=== PATIENT | male | born 1950 | race Caucasian/White ===

== ENCOUNTER 2016-05-18 01:52 | Emergency (ER) | payer OTHER, MEDICARE ==
[~2016-05-18] VITALS: Ht 152.4 cm; Wt 105.2 kg
[~2016-05-18 01:52] MED LIST: ALPRAZOLAM2 MG PO; AMLODIPINE10 MG PO; ASPIRIN CHILDRE81 MG PO; COLACE100 MG PO; DIAZEPAM5 MG PO; DULCOLAX10 MG PR; FERROUS SULFAT325 M1 PO; FLEET ENEMA 131 UNIT PR; FOLIC ACID 1 MG PO; GABAPENTIN300 MG PO; HYDRODIURIL 2525 MG PO; LIDODERM 5% PAT1 PAT EXT; LISINOPRIL20 MG PO; LOPRESSOR50 MG PO; LORAZEPAM1 MG PO; MAG-OX 400400 MG PO; METFORMIN HCL1000 MG PO; METHADONE HYDRO10 MG PO; MILK OF MAGNESI30 ML PO; MIRALAX17 GM PO; OXACILLIN2 G1 IV; OXYCODONE HYDRO10 M1 PO; OXYCODONE HYDRO30 MG PO; OXYCODONE5 M1 PO; OXYCONTIN10 MG PO; OXYCONTIN15 MG PO; PERCOCET 325 MG1 TA2 PO; PERIGUARD TOP; PRILOSEC 20MG C20 MG PO; ROXICODONE5 MG PO; SANTYL250 U/GM TOP; SENNA8.6 M1 PO; Theragran Vitamins PO; ULTRAM(MONOGRAP50 MG PO; VITAMIN B1100 MG PO
--- NOTE | 2016-05-18 02:01 | ED GENERAL ADULT ---
History of Present Illness General Chief Complaint: Upper Extremity Problem Stated Complaint: BIBA LEFT SHOULDER PAIN Source: patient, old records, EMS Exam Limitations: no limitations Vital Signs & Intake/Output Vital Signs & Intake/Output Vital Signs Date Time Temp Pulse Resp B/P Pulse O2 O2 Flow FiO2 Ox Delivery Rate 05/18 0221 98.2 66 18 138/74 95 Room Air Allergies Coded Allergies: codeine (Intermediate, STOMACH CRAMPING 05/18/16) morphine (From MS Contin) (Intermediate, PROFUSE SWEATING 05/18/16) Reconcile Medications Amlodipine Besylate (Amlodipine) 10 MG TABLET 1 TAB PO DAILY HTN (Reported) Aspirin (Children's Aspirin) 81 MG CTB 81 MG PO DAILY Heart Bisacodyl (Dulcolax) 10 MG SUP 1 SUPP UT DAILY NEEDED PRN CONSTIPATION ( Reported) Fleet Enema (Fleet Enema 135 Ml) 19 GRAM-7 GRAM/118 ML ENEMA 1 UNIT UT DAILY NEEDED PRN CONSTIPATION (Reported) Gabapentin 300 MG CAPSULE 1 TAB PO TID PAIN (Reported) Lidocaine HCl (Lidoderm Patch) 5 % PAT 1 PAT EXT DAILY Pain Lorazepam 1 MG TAB 1 MG PO DAILY NEEDED PRN ANXIETY Magnesium Hydroxide (Milk Of Magnesia 30ML) 400 MG/5 ML ORAL.SUSP 30 ML PO Q3D PRN CONSTIPATION (Reported) METFORMIN HCL (Metformin HCl) 1,000 MG TABLET 1 TAB PO BID DIABETES (Reported ) Oxycodone HCl 10 MG TABLET 1-2 TAB PO 4XDP PRN pain ten...[id number] OXYCODONE HCL (Oxycontin) [address] 30 MG PO Q12 Pain OXYCODONE HCL (Roxicodone) 5 MG TAB 10 MG PO Q4P PRN PAIN MODERATE TO SEVERE Tramadol HCl (Ultram) 50 MG TAB 50 MG PO Q6 Pain Triage Nurses Notes Reviewed? yes Onset: Gradual Duration: waxing and waning, waxing and waning for years Injury Environment: home Severity: mild, moderate Modifying Factors: Improves With: rest. Worsens With: movement. Associated Symptoms: left shoulder pain HPI: 66 yo gentleman presents with several years of left shoulder and right lower lumbar pain. He notes no new trauma or injury. He notes that he feels worse with movement, with the possible trigger being when he cleaned his car. He notes that he has been feeling better with oxycodone 30mg in the past, but it has been many months since he last had this medication. He notes, "I feel pain all the time." Past History Travel History Traveled to [place] past 21 day No Medical History Any Pertinent Medical History? see below for history Cardiovascular: hypertension, hyperlipidemia Musculoskeletal: chronic pain History of MRSA: No History of VRE: No History of CDIFF: No Surgical History Surgical History: lumbar surgery Psychosocial History Who do you live with Patient/Self Services at Home Nursing What is your primary language Sierra Leonean Family History Family History, If Any: FATHER Relation not specified for: FH: lung cancer Hx Contributory? No Review of Systems Review of Systems Constitutional: Reports: no symptoms. EENTM: Reports: no symptoms. Respiratory: Reports: no symptoms. Cardiovascular: Reports: no symptoms. GI: Reports: no symptoms. Genitourinary: Reports: no symptoms. Musculoskeletal: Reports: no symptoms. Skin: Reports: no symptoms. Neurological/Psychological: Reports: no symptoms. Hematologic/Endocrine: Reports: no symptoms. Immunologic/Allergic: Reports: no symptoms. All Other Systems: Reviewed and Negative Physical Exam Physical Exam General Appearance: well developed/nourished, mild distress Head: atraumatic, normal appearance Eyes: Bilateral: normal appearance. Ears, Nose, Throat: normal pharynx, normal ENT inspection Neck: normal inspection, supple, full range of motion Respiratory: normal breath sounds, chest non-tender, no respiratory distress, quiet respiration, lungs clear Cardiovascular: regular rate/rhythm Gastrointestinal: normal bowel sounds, soft, non-tender, no organomegaly Back: normal inspection, muscle spasm, no vertebral tenderness Extremities: left shoulder with crepitus, pain with passive ROM. No warmth/sign of infection. No deformity. Neurologic/Psych: no motor/sensory deficits, awake, alert, oriented x 3 Skin: intact, normal color, warm/dry Core Measures ACS in differential dx? No CVA/TIA Diagnosis: No Severe Sepsis Present: No Septic Shock Present: No Progress Differential Diagnoses I considered the following diagnoses in my evaluation of the patient: chronic pain, arthritis vs other. Plan of Care: Current Medications Sig/Ernestina Start time Last Medication Dose Stop Time Status Admin Alprazolam 1 MG ONCE ONE 05/18 214 AC (Xanax) 05/18 215 Initial ED EKG: none Departure Departure Disposition: HOME OR SELF CARE Condition: Stable Clinical Impression Primary Impression: Chronic pain Secondary Impressions: Arthritis Referrals: PRICE DOLAN,DEANNE (PCP/Family) Departure Forms: Customer Survey General Discharge Information Prescriptions: Current Visit Scripts Oxycodone HCl 1-2 TAB PO 4XDP PRN pain #10 TAB ten...[id number] Comments pt with chronic pain, no new injury, pt ambulated in ED without problem, safe for discharge with follow up by PMD. Critical Care Note Critical Care Note Critical Care Time: non-applicable
[2016-05-18] MEDS ORDERED: OXYCODONE HCL10 M2 PO (02:03)
[2016-05-18 02:21] VITALS: BP 138/74
== END 2016-05-18 04:11 ==
LOC: ERH 01:52
DX: G89.29 Other chronic pain (principal); M19.90 Unspecified osteoarthritis, unspecified site; M54.5 Low back pain

== ENCOUNTER 2016-07-12 09:11 | Emergency (ER) | payer OTHER, MEDICARE ==
[~2016-07-12] VITALS: Ht 176.5 cm; Wt 108.0 kg
[~2016-07-12 09:11] MED LIST changes: +OXYCODONE HCL10 M2 PO
[2016-07-12 09:22] VITALS: BP 144/89
--- NOTE | 2016-07-12 09:43 | ED UPPER/LOWER EXTREMITY COMPL ---
History of Present Illness General Chief Complaint: Shoulder Injury Stated Complaint: LEFT SHOULDER PAIN THAT RADIATES DOWN ARM Source: patient Exam Limitations: no limitations Vital Signs & Intake/Output Vital Signs & Intake/Output ED Intake and Output 04 0000 07/12 1200 Intake Total Output Total Balance Patient 238 lb Weight Allergies Coded Allergies: codeine (Intermediate, STOMACH CRAMPING 07/12/16) morphine (From MS Contin) (Intermediate, PROFUSE SWEATING 07/12/16) Reconcile Medications Amlodipine Besylate (Amlodipine) 10 MG TABLET 1 TAB PO DAILY HTN (Reported) Aspirin (Children's Aspirin) 81 MG CTB 81 MG PO DAILY Heart Bisacodyl (Dulcolax) 10 MG SUP 1 SUPP OR DAILY NEEDED PRN CONSTIPATION ( Reported) Fleet Enema (Fleet Enema 135 Ml) 19 GRAM-7 GRAM/118 ML ENEMA 1 UNIT OR DAILY NEEDED PRN CONSTIPATION (Reported) Gabapentin 300 MG CAPSULE 1 TAB PO TID PAIN (Reported) Lidocaine HCl (Lidoderm Patch) 5 % PAT 1 PAT EXT DAILY Pain Lorazepam 1 MG TAB 1 MG PO DAILY NEEDED PRN ANXIETY Magnesium Hydroxide (Milk Of Magnesia 30ML) 400 MG/5 ML ORAL.SUSP 30 ML PO Q3D PRN CONSTIPATION (Reported) METFORMIN HCL (Metformin HCl) 1,000 MG TABLET 1 TAB PO BID DIABETES (Reported ) Oxycodone HCl 10 MG TABLET 1 TAB PO BID PRN PAIN Oxycodone HCl 10 MG TABLET 1-2 TAB PO 4XDP PRN pain ten...[id number] OXYCODONE HCL (Oxycontin) [address] 30 MG PO Q12 Pain OXYCODONE HCL (Roxicodone) 5 MG TAB 10 MG PO Q4P PRN PAIN MODERATE TO SEVERE Tramadol HCl (Ultram) 50 MG TAB 50 MG PO Q6 Pain Triage Note: TRIAGE: PT TO ER C/C L SHOULDER PAIN CHRONIC/CONSTANT X YEARS. TRIED ALEVE WITH NO RELIEF. REFERRED TO PAIN CLINIC AND WAS GIVEN PRESCRIPTION OXYCODONE [address] HOFF 06/08/2016, STATES THEY ONLY LASTED ABOUT A WEEK. LOOKING INTO SURGICAL OPTIONS AT THIS TIME WELL. Triage Nurses Notes Reviewed? yes Onset: Abrupt Duration: day(s): (1) Timing: multiple episodes today Severity: moderate, severe Severity Numbers: 10 Pain/Injury Location: Left: Shoulder. Modifying Factors: Worsens With: movement. Associated Symptoms: GOT WORSE AFTER LIFTING GRANDAUGHTER HPI: 66 year old male presents to the ER for chief complaint of chronic left shoulder pain. History of spinal abscess after shoulder surgery many years ago. He had a fracture at that time. Developed hematologic spread of a septic joint. Patient states that his PCP will not prescribe him pain medications and he is waiting to get into a new orthopedic doctor (dr. jj) that he was referred to out of [place] who does reverse shoulder replaement. He does not want to go back to pain managment because of ford need to go multiple times into the office. He ran out of the medication that he received from the ER a few days ago. Past History Travel History Traveled to [facility] past 21 day No Medical History Any Pertinent Medical History? 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 No Review of Systems Review of Systems Constitutional: Denies: chills, fever. EENTM: Reports: no symptoms. Respiratory: Denies: cough, short of breath. Cardiovascular: Reports: palpitations. Denies: chest pain. Gastrointestinal/Abdominal: Denies: abdominal pain. Genitourinary: Reports: no symptoms. Musculoskeletal: Reports: joint pain, muscle pain, muscle stiffness. Skin: Reports: no symptoms. Neurological/Psychological: Reports: numbness, tingling, weakness. Hematologic/Endocrine: Denies: bruising, bleeding, polyuria, polydipsia. Immunological: Denies: splenectomy. All Other Systems: Reviewed and Negative Physical Exam Physical Exam General Appearance: well developed/nourished, alert, anxious, mild distress Head: atraumatic Eyes: Bilateral: PERRL, EOMI. Ears, Nose, Throat: normal pharynx, normal ENT inspection, hearing grossly normal Neck: normal inspection, supple Cardiovascular/Respiratory: regular rate/rhythm Peripheral Pulses: 2+ radial (R), 2+ radial (L) Back: normal inspection Shoulder Left: pain, limited range of motion Shoulder Right: normal range of motion, normal inspection Elbow Left: normal range of motion, normal inspection Elbow Right: normal range of motion, normal inspection Hand Left: normal inspection, normal range of motion Hand Right: normal inspection, normal range of motion Skin: intact, normal color, warm/dry Lymphatic: no anterior cervical lisa Progress Differential Diagnosis: acute exacerbation of chronic pain Plan of Care: Current Medications Sig/Ernestina Start time Last Medication Dose Stop Time Status Admin Ketorolac 60 MG ONCE ONE 07/12 1015 UNVr Tromethamine 07/12 1016 (Toradol) [facility] REFUSED IM TORADOL. LONG DISCUSSION HAD WITH PATIENT REGARDING FOLLOWING UP ABOUT HIS FUTURE PAIN MANAGMENT. HE STATES HE WILL MAKE APPOINTMENT WITH ORTHO AND WITH PAIN MANAGMEENT. (PARTH DOLAN,CHAI) Departure Departure Time of Disposition: 1015 Disposition: HOME OR SELF CARE Condition: Stable Clinical Impression Primary Impression: Chronic left shoulder pain Referrals: PRICE DOLAN,DEANNE (PCP/Family) Additional Instructions: PLEASE SEE DR JJ OUT OF [place] AND FOLLOW UP WITH PAIN MANAGEMENT AT THE SAME TIME. TAKE THE MEDICATIONS SPARINGLY. AVOID ANY ACTIVITIES THAT WOULD MAKE YOUR SHOULDER PAIN WORSE. Departure Forms: Customer Survey General Discharge Information Prescriptions: Current Visit Scripts Oxycodone HCl 1 TAB PO BID PRN PAIN #10 TAB
[2016-07-12] MEDS ORDERED: OXYCODONE HCL10 M2 PO (10:15)
== END 2016-07-12 10:34 ==
LOC: ERH 09:11
DX: G89.29 Other chronic pain (principal); M25.512 Pain in left shoulder

== ENCOUNTER 2016-08-22 11:00 | Emergency (ER) | payer OTHER, MEDICARE ==
[~2016-08-22] VITALS: Ht 175.3 cm; Wt 108.0 kg
[2016-08-22 11:09] VITALS: BP 143/79
--- NOTE | 2016-08-22 11:12 | ED UPPER/LOWER EXTREMITY COMPL ---
History of Present Illness General Chief Complaint: Shoulder Injury Stated Complaint: LEFT SHOULDER PAIN, NEEDS PAIN MEDS Source: patient, old records Exam Limitations: no limitations Vital Signs & Intake/Output Vital Signs & Intake/Output Vital Signs Date Time Temp Pulse Resp B/P B/P Pulse O2 O2 Flow FiO2 Mean Ox Delivery Rate 08/22 1109 98.0 83 15 143/79 96 Room Air Room Air Allergies Coded Allergies: codeine (Intermediate, STOMACH CRAMPING 08/22/16) morphine (From MS Contin) (Intermediate, PROFUSE SWEATING 08/22/16) Reconcile Medications Amlodipine Besylate (Amlodipine) 10 MG TABLET 1 TAB PO DAILY HTN (Reported) Aspirin (Children's Aspirin) 81 MG CTB 81 MG PO DAILY Heart Bisacodyl (Dulcolax) 10 MG SUP 1 SUPP IA DAILY NEEDED PRN CONSTIPATION ( Reported) Fleet Enema (Fleet Enema 135 Ml) 19 GRAM-7 GRAM/118 ML ENEMA 1 UNIT IA DAILY NEEDED PRN CONSTIPATION (Reported) Gabapentin 300 MG CAPSULE 1 TAB PO TID PAIN (Reported) Lidocaine HCl (Lidoderm Patch) 5 % PAT 1 PAT EXT DAILY Pain Lorazepam 1 MG TAB 1 MG PO DAILY NEEDED PRN ANXIETY Magnesium Hydroxide (Milk Of Magnesia 30ML) 400 MG/5 ML ORAL.SUSP 30 ML PO Q3D PRN CONSTIPATION (Reported) METFORMIN HCL (Metformin HCl) 1,000 MG TABLET 1 TAB PO BID DIABETES (Reported ) Oxycodone HCl 10 MG TABLET 1 TAB PO BID PRN PAIN Oxycodone HCl 10 MG TABLET 1-2 TAB PO 4XDP PRN pain ten...[id number] Oxycodone HCl 10 MG TABLET 1 TAB PO BID PRN BREAKTHROUGH SHOULDER PAIN OXYCODONE HCL (Oxycontin) [address] 30 MG PO Q12 Pain OXYCODONE HCL (Roxicodone) 5 MG TAB 10 MG PO Q4P PRN PAIN MODERATE TO SEVERE Tramadol HCl (Ultram) 50 MG TAB 50 MG PO Q6 Pain Triage Nurses Notes Reviewed? yes Onset: Gradual Duration: week(s): (1), constant Timing: recent history Severity: severe Severity Numbers: 10 Pain/Injury Location: Right: Shoulder. Modifying Factors: Improves With: pain medication, rest. Worsens With: movement. Associated Symptoms: none HPI: 66-year-old male presents to ER complaining of chronic left shoulder pain exacerbation over the past several days. He's been using [id number] medications without improvement. He denies any new injury or trauma. He states that he initially had the shoulder repair in 2013, complicated by a spinal abscess after the surgery. The patient states that his primary care physician will not prescribe him pain medication and he refuses to go to pain management. He claims to have an appointment with his orthopedist this Wednesday. No recent fall or trauma. Pain is worse with ambulation movement he denies any swelling or rashes to her skin no chest pain back pain palpitation shortness of breath. He claims that he is always in pain since the surgery in 2013 every day. no numbness or tingling (CARIE DOBSON) Past History Travel History Traveled to [place] past 21 day No Medical History Any Pertinent Medical History? 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 No (CARIE DOBSON) Review of Systems Review of Systems Constitutional: Reports: see HPI. All Other Systems: Reviewed and Negative Comments Review of systems: See HPI, All other systems negative. Constitutional, no chills no fever, no malaise no weight loss HEENT: no sore throat no congestion, no ear pain Cardiovascular: No chest pain , no palpitation Skin: no rashes, no change in skin Respiratory: No dyspnea no cough no sputum GI: No nausea no vomiting, no diarrhea Muscle skeletal: joint pain, no joint swelling, no back pain, no neck pain, Neurologic: No numbness no headache Psych: No stress Heme/endocrine: No bruising no bleeding Immunology: No lymphadenopathy (CARIE DOBSON) Physical Exam Physical Exam General Appearance: well developed/nourished, alert, awake Comments: Well-developed well-nourished patient in no apparent distress. HEENT: Atraumatic, extraocular motion intact Neck: Supple, FROM Back: FROM Cardiovascular: Regular rate and rhythms no murmurs rubs or gallops, Respiratory: Chest nontender.There were no bony deformities, no asymmetry. No respiratory distress. Patient speaking in full complete sentences. Breath sounds clear to auscultation bilaterally: NO W/R/R Shoulder: Atraumatic/Stable. Limited range of motion secondary to pain no rashes to the skin Elbow: Atraumatic/stable. FROM. No laxity Upper arm/Forearm: Atraumatic. Nontender. No edema, 5 out of 5 cardiovascular disease specialist strength noted to bilateral upper extremities Hand/Wrist: Atraumatic/stable. Skin intact. FROM Pulses: Normal/equal radial pulses bilaterally. Brisk cap refill Lower Extremities: full range of motion Neuro: awake, alert, and oriented to person, place and time. There were no obvious focal neurologic abnormalities. Skin: Warm & dry;No appreciable rash on exposed skin Psych: Mood affect normal, normal memory normal judgment. (CARIE DOBSON) Progress Differential Diagnosis: arterial insufficiency, cellulitis, compartment syndrome , contusion, dislocation, DVT, fracture, gout, sprain, tendon injury Plan of Care: Orders Procedure Date/time Status Durable Medical Equipment 08/[address] it applications developer reviewed. pain has been chronic snice initially surgery he states in 2013. i d/w him that this er cannot and will not continue to manage his chronicpain. pt claims to have an appointment with ortho on this upcoming wednesday (Despite telling nursing appt is wednesday). shoulder sling provided. pt is refusing rx for anti inflammatory. requesting something stronger then oxy 10s , which i refused. info provided for pain managemengt as well (CARIE DOBSON) Departure Departure Time of Disposition: 1122 Disposition: HOME OR SELF CARE Condition: Stable Clinical Impression Primary Impression: Chronic left shoulder pain Referrals: PRICE DOLAN,DEANNE (PCP/Family) BENJI DOLAN,ERIC Chao Additional Instructions: follow up with your orthopedist as well as pain management dr wilson oxycodone for breakthrough pain- this is a narcotic and highly addictive. no driving or drinking alcohol while taking as this will make you drowsy As discussed this Emergency room cannot continue to manage your chronic shoulder pain, and will not continue to refill narcotic pain medications. shoulder sling, rest, ice, ibuprofen 800mg every 8 hours. 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 I have also reviewed all the pertinent lab results and diagnostic results. I agree with the findings and the plan of care as documented in the PA's/COKE STILL CLEANER's documentation. [X] I have reviewed the ED Record and agree with the PA's/COKE STILL CLEANER's documentation. [] Additions or exceptions (if any) to the PAs/COKE STILL CLEANER's note and plan are summarized below: [] (AMRIT DOLAN,KEM Porter)
[2016-08-22] MEDS ORDERED: OXYCODONE HCL10 M2 PO (11:32)
== END 2016-08-22 11:39 ==
LOC: ERH 11:00
DX: G89.29 Other chronic pain (principal); M25.512 Pain in left shoulder
CPT/HCPCS: J1885

== ENCOUNTER 2016-09-06 11:23 | Emergency (ER) | payer OTHER ==
[~2016-09-06] VITALS: Ht 175.3 cm; Wt 102.1 kg
[2016-09-06 11:27] VITALS: BP 143/84
--- NOTE | 2016-09-06 12:45 | RADIOLOGY REPORT ---
EXAMINATION: XR LUMBAR SPINE CLINICAL INFORMATION: Low back pain after fall. History of surgery. COMPARISON: Comparison is made to the x-ray report from 02/09/2014. TECHNIQUE: Single AP view obtained of the lumbosacral spine FINDINGS: Moderate right convex lumbar scoliosis. Multilevel disc narrowing and degenerative changes are seen. This is most notable at L3-L4 with a vacuum phenomenon. Associated facet arthropathy. A lateral view is not obtained to assess for vertebral height or additional malalignment. Sacroiliac joints unremarkable. A compression screw extends into the right femoral head. IMPRESSION: Multilevel degenerative changes seen on this AP view of the lumbar spine with a right convex scoliosis. Consider additional imaging if there remains clinical concern regarding compression deformity or acute abnormality in the lumbar spine.
--- NOTE | 2016-09-06 12:50 | RADIOLOGY REPORT ---
EXAMINATION: XR SHOULDER, LEFT CLINICAL INFORMATION: Left shoulder pain after fall COMPARISON: Left shoulder radiographs 01/31/2014. Selected images from MRI left shoulder 08/29/2015. TECHNIQUE: Three views of the left shoulder. FINDINGS: Left humeral head is deformed and flattened along its articular margin with subchondral sclerosis and marked irregularity. The humeral head is subluxed superiorly. Associated severe degenerative change of the glenohumeral joint with marked joint space narrowing, sclerosis and osteophyte formation. No evidence of acute fracture or dislocation. The acromioclavicular joint is unremarkable. IMPRESSION: Severe deformity and flattening of the left humeral head which is subluxed superiorly. Associated advanced degenerative change in the glenohumeral joint with marked joint space narrowing, sclerosis and osteophyte formation. No acute fracture or dislocation is seen.
[2016-09-06] MEDS ORDERED: IBUPROFEN800 M1 PO (13:11)
[2016-09-06] MEDS ORDERED: PERCOCET 10-321 EACH PO (13:11)
--- NOTE | 2016-09-06 13:12 | ED MVC/FALL/TRAUMA COMPLAINT ---
History of Present Illness General Chief Complaint: Shoulder Injury Stated Complaint: L SHOULDER PAIN/PAIN MANAGEMENT Source: patient, old records Exam Limitations: no limitations Vital Signs & Intake/Output Vital Signs & Intake/Output Vital Signs Date Time Temp Pulse Resp B/P B/P Pulse O2 O2 Flow FiO2 Mean Ox Delivery Rate 09/06 1127 97.5 78 15 143/84 97 Room Air Room Air Allergies Coded Allergies: codeine (Intermediate, STOMACH CRAMPING 09/06/16) morphine (From MS Contin) (Intermediate, PROFUSE SWEATING 09/06/16) Reconcile Medications Amlodipine Besylate (Amlodipine) 10 MG TABLET 1 TAB PO DAILY HTN (Reported) Aspirin (Children's Aspirin) 81 MG CTB 81 MG PO DAILY Heart Bisacodyl (Dulcolax) 10 MG SUP 1 SUPP PA DAILY NEEDED PRN CONSTIPATION ( Reported) Fleet Enema (Fleet Enema 135 Ml) 19 GRAM-7 GRAM/118 ML ENEMA 1 UNIT PA DAILY NEEDED PRN CONSTIPATION (Reported) Gabapentin 300 MG CAPSULE 1 TAB PO TID PAIN (Reported) Ibuprofen 800 MG TABLET 1 TAB PO TID pain Lidocaine HCl (Lidoderm Patch) 5 % PAT 1 PAT EXT DAILY Pain Lorazepam 1 MG TAB 1 MG PO DAILY NEEDED PRN ANXIETY Magnesium Hydroxide (Milk Of Magnesia 30ML) 400 MG/5 ML ORAL.SUSP 30 ML PO Q3D PRN CONSTIPATION (Reported) METFORMIN HCL (Metformin HCl) 1,000 MG TABLET 1 TAB PO BID DIABETES (Reported ) Oxycodone HCl 10 MG TABLET 1 TAB PO BID PRN PAIN Oxycodone HCl 10 MG TABLET 1-2 TAB PO 4XDP PRN pain ten...[id number] Oxycodone HCl 10 MG TABLET 1 TAB PO BID PRN BREAKTHROUGH SHOULDER PAIN OXYCODONE HCL (Oxycontin) [address] 30 MG PO Q12 Pain OXYCODONE HCL (Roxicodone) 5 MG TAB 10 MG PO Q4P PRN PAIN MODERATE TO SEVERE Oxycodone HCl/Acetaminophen (Percocet 10-325 MG Tablet) 10 MG-325 MG TABLET 1 TAB PO 4 TIMES/DAY pain Tramadol HCl (Ultram) 50 MG TAB 50 MG PO Q6 Pain Triage Note: PT TO ED FOR CHRONIC LEFT SHOULDER PAIN. SEEN HERE RECENTLY AND RAN OUT OF PAIN MEDS. Triage Nurses Notes Reviewed? yes Onset: Abrupt (yesterday) Duration: hour(s):, constant, continues in ED, getting worse Timing: recent history Severity: moderate, severe Severity Numbers: 9 Injuries/Fall Location: upper extremity (left shoulder ), back Method of Injury: fall Loss of Consciousness: no loss of consciousness No Modifying Factors: none HPI: 66-year-old male with a history of chronic low back pain and chronic left shoulder pain presents to the emergency department with acute on chronic left shoulder and low back pain. Patient reports his pain worsened yesterday when he fell back against a wall. He denies any head injuries or loss of consciousness. He did not fall to the ground. Pain is located in his lower back and does not radiate and is worse with movement and rated as an 8 out of 10. In the left shoulder is worse with movement does not radiate and is rated as an 8 out of 10. Patient reports that pain is both his left shoulder and lower back is the same type of pain he has been dealing with for years. He is currently trying to get in with pain management and is scheduling a left shoulder replacement. He takes oxycodone 10 mg once daily but ran out of his medication and states his orthopedic doctor is unwilling to refill any more medication until after surgery. He denies any numbness tingling fever chest pain shortness of breath or cough. (HASMUKH HILLIARD PA-C) Past History Travel History Traveled to [place] past 21 day No Medical History Any Pertinent Medical History? 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 Yes (HASMUKH HILLIARD PA-C) Review of Systems Review of Systems Constitutional: Reports: no symptoms. Eyes: Reports: no symptoms. Ears, Nose, Throat, Mouth: Reports: no symptoms. Respiratory: Reports: no symptoms. Cardiovascular: Reports: no symptoms. Gastrointestinal/Abdominal: Reports: no symptoms. Genitourinary: Reports: no symptoms. Musculoskeletal: Reports: see HPI, back pain, joint pain (left shoudler ). Skin: Reports: no symptoms. Neurological/Psychological: Reports: no symptoms. All Other Systems: Reviewed and Negative (BABAK GARCÍA,HASMUKH) Physical Exam Physical Exam General Appearance: well developed/nourished, no apparent distress, alert, awake , mild distress Head: atraumatic, normal appearance Eyes: Bilateral: normal appearance, PERRL, EOMI, normal inspection. Ears, Nose, Throat, Mouth: hearing grossly normal Neck: normal inspection, supple, full range of motion, normal alignment, no midline tenderness Respiratory: normal breath sounds, chest non-tender, no respiratory distress, lungs clear Cardiovascular: regular rate/rhythm Peripheral Pulses: 2+ radial (R), 2+ radial (L) Gastrointestinal: normal bowel sounds, soft, non-tender Back: normal range of motion, vertebral tenderness, decreased range of motion, muscle spasm, surgical scar over the lumbar spine. Extremities: limited range of motion (left shoudler ), pain with movement (left shoudler ), tenderness (left shoudler ) Neurologic/Psych: no motor/sensory deficits, awake, alert, oriented x 3, normal gait, normal mood/affect Skin: intact, normal color, warm/dry Comments: There is pain with palpation of the left shoulder anteriorly and posteriorly. Full range of motion of the left shoulder is intact with pain. There is no swelling no bruising no abrasions. Neurovascular supply to the left upper extremity is intact. Full range of motion of the elbow and wrist joints. Pain with palpation of lumbar spine and paraspinous muscles. Full range of motion of the lumbar spine is intact with pain present. There is a large surgical surgical scar over the lumbar spine. No bruising no swelling no CVA tenderness. Strainght leg raise negative bilaterally Core Measures ACS in differential dx? No Severe Sepsis Present: No Septic Shock Present: No (BABAK GARCÍA,HASMUKH) Progress Differential Diagnosis: C/T/L spine injury, ext injury, OA, rotater cuff tear, cervical radiculopathy, frozen shoudler, septic arthritis, muscle strain, fracture Plan of Care: X-rays of the lumbar spine and left shoulder were ordered due to recent trauma. Patient reports his pain is similar to previous episodes he currently ran out of pain medication. X-rays of lumbar spinal shoulder showed no acute fracture but significant degenerative changes. Patient will be given a refill of oxycodone 10 mg to use every 4-6 hours needed for pain. Patient will follow-up with his orthopedic doctor and pain management this week for further evaluation. He'll return to the emergency department with any concerns. Comments: EXAMINATION: XR LUMBAR SPINE CLINICAL INFORMATION: Low back pain after fall. History of surgery. COMPARISON: Comparison is made to the x-ray report from 02/09/2014. TECHNIQUE: Single AP view obtained of the lumbosacral spine FINDINGS: Moderate right convex lumbar scoliosis. Multilevel disc narrowing and degenerative changes are seen. This is most notable at L3-L4 with a vacuum phenomenon. Associated facet arthropathy. A lateral view is not obtained to assess for vertebral height or additional malalignment. Sacroiliac joints unremarkable. A compression screw extends into the right femoral head. IMPRESSION: Multilevel degenerative changes seen on this AP view of the lumbar spine with a right convex scoliosis. Consider additional imaging if there remains clinical concern regarding compression deformity or acute abnormality in the lumbar spine. EXAMINATION: XR SHOULDER, LEFT CLINICAL INFORMATION: Left shoulder pain after fall COMPARISON: Left shoulder radiographs 01/31/2014. Selected images from MRI left shoulder 08/29/2015. TECHNIQUE: Three views of the left shoulder. FINDINGS: Left humeral head is deformed and flattened along its articular margin with subchondral sclerosis and marked irregularity. The humeral head is subluxed superiorly. Associated severe degenerative change of the glenohumeral joint with marked joint space narrowing, sclerosis and osteophyte formation. No evidence of acute fracture or dislocation. The acromioclavicular joint is unremarkable. IMPRESSION: Severe deformity and flattening of the left humeral head which is subluxed superiorly. Associated advanced degenerative change in the glenohumeral joint with marked joint space narrowing, sclerosis and osteophyte formation. No acute fracture or dislocation is seen. (BABAK GARCÍA,HASMUKH) Departure Departure Disposition: HOME OR SELF CARE Condition: Stable Clinical Impression Primary Impression: Left shoulder pain Secondary Impressions: Low back pain Referrals: PRICE DOLAN,DEANNE (PCP/Family) Additional Instructions: Rest avoid heavy lifting bending or excessive physical activity. Use ibuprofen 800 mg every 8 hours with food as needed for pain. Percocet every 4-6 hours as needed for severe breakthrough pain. This may cause drowsiness do not drive while taking. They can follow-up appointment with her orthopedic doctor this week. There is emergency department with any concerns. Please go over all results of today's visit with your primary care doctor. Contact your primary care doctor to let them know you were here in the emergency room. There may be nonspecific findings which may not be related to your visit today here in the emergency room but may require further evaluation and chronic monitoring by your primary care doctor. If you had a laceration today the chance of foreign body always remains. You should follow-up with your primary care doctor for recheck in 3-5 days for a wound check. If you had an x-ray done there is a chance that a fracture could have been missed on initial read and you should follow-up with your primary care doctor for repeat x-rays if symptoms persist. If your blood pressure was elevated here in the emergency room please have rechecked by her primary care doctor within the next 48 hours by your primary care doctor. If you were prescribed a narcotic here in the emergency room or any type of controlled substances you're not allowed to drive while taking this medication or operate any type of heavy machinery. Narcotics can make you feel lightheaded dizziness nausea and can cause constipation. You may need to car pick up driver a stool softener. Thank you for choosing [facility] emergency room. Please return to the emergency room immediately if you have any other concerns worsening of symptoms. Departure Forms: Customer Survey General Discharge Information Prescriptions: Current Visit Scripts Oxycodone HCl/Acetaminophen (Percocet 10-325 MG Tablet) 1 TAB PO 4 TIMES/DAY #10 TAB Ibuprofen 1 TAB PO TID #30 TAB (HASMUKH HILLIARD PA-C) PA/CVT RN Co-Sign Statement Statement: ED Attending supervision documentation- x I saw and evaluated the patient. I have also reviewed all the pertinent lab results and diagnostic results. I agree with the findings and the plan of care as documented in the PA's/CVT RN's documentation. [] I have reviewed the ED Record and agree with the PA's/CVT RN's documentation. [] Additions or exceptions (if any) to the PAs/CVT RN's note and plan are summarized below: [] (VALDEMAR DOLAN,ROSLYN)
== END 2016-09-06 13:15 ==
LOC: ERH 11:23
DX: M25.512 Pain in left shoulder (principal); M54.5 Low back pain
CPT/HCPCS: 72020; 73030-LT

== ENCOUNTER 2016-09-23 03:26 | Emergency (ER) | payer OTHER ==
[~2016-09-23] VITALS: Ht 175.3 cm; Wt 102.1 kg
[~2016-09-23 03:26] MED LIST changes: +IBUPROFEN800 M1 PO; +PERCOCET 10-321 EACH PO
[2016-09-23 03:31] VITALS: BP 118/61
--- NOTE | 2016-09-23 03:44 | ED UPPER/LOWER EXTREMITY COMPL ---
History of Present Illness General Chief Complaint: Upper Extremity Problem Stated Complaint: BIBA L SHOULDER, BACK PAIN Source: patient, old records, EMS Exam Limitations: no limitations Vital Signs & Intake/Output Vital Signs & Intake/Output Vital Signs Date Time Temp Pulse Resp B/P B/P Pulse O2 O2 Flow FiO2 Mean Ox Delivery Rate 09/23 0331 96.5 73 18 118/61 95 Room Air Allergies Coded Allergies: codeine (Intermediate, STOMACH CRAMPING 09/23/16) morphine (From MS Contin) (Intermediate, PROFUSE SWEATING 09/23/16) Reconcile Medications Amlodipine Besylate (Amlodipine) 10 MG TABLET 1 TAB PO DAILY HTN (Reported) Aspirin (Children's Aspirin) 81 MG CTB 81 MG PO DAILY Heart Bisacodyl (Dulcolax) 10 MG SUP 1 SUPP GA DAILY NEEDED PRN CONSTIPATION ( Reported) Fleet Enema (Fleet Enema 135 Ml) 19 GRAM-7 GRAM/118 ML ENEMA 1 UNIT GA DAILY NEEDED PRN CONSTIPATION (Reported) Gabapentin 300 MG CAPSULE 1 TAB PO TID PAIN (Reported) Ibuprofen 800 MG TABLET 1 TAB PO TID pain Lidocaine HCl (Lidoderm Patch) 5 % PAT 1 PAT EXT DAILY Pain Lorazepam 1 MG TAB 1 MG PO DAILY NEEDED PRN ANXIETY Magnesium Hydroxide (Milk Of Magnesia 30ML) 400 MG/5 ML ORAL.SUSP 30 ML PO Q3D PRN CONSTIPATION (Reported) METFORMIN HCL (Metformin HCl) 1,000 MG TABLET 1 TAB PO BID DIABETES (Reported ) Oxycodone HCl 10 MG TABLET 1 TAB PO BID PRN PAIN Oxycodone HCl 10 MG TABLET 1-2 TAB PO 4XDP PRN pain ten...[id number] Oxycodone HCl 10 MG TABLET 1 TAB PO BID PRN BREAKTHROUGH SHOULDER PAIN Oxycodone HCl 5 MG CAPSULE 1 CAP PO Q6P PRN PAIN OXYCODONE HCL (Oxycontin) [address] 30 MG PO Q12 Pain OXYCODONE HCL (Roxicodone) 5 MG TAB 10 MG PO Q4P PRN PAIN MODERATE TO SEVERE Oxycodone HCl/Acetaminophen (Percocet 10-325 MG Tablet) 10 MG-325 MG TABLET 1 TAB PO 4 TIMES/DAY pain Tramadol HCl (Ultram) 50 MG TAB 50 MG PO Q6 Pain Triage Note: TRIAGE: PATIENT TO ER W/ C/O CHRONIC BACK PAIN AND CHRONIC L SHOULDER PAIN "BURSITIS," EMS STATES "SAID HE ROLLED OVER IN BED AND IT HURT," PER PATIENT "THAT DIDN'T HAPPEN, IT'S JUST MY BURSITIS." PATIENT STATES: "I COME HERE EVERY 2 WEEKS BECAUSE I CAN ONLY TAKE MY PAIN FOR SO LONG." Triage Nurses Notes Reviewed? yes HPI: Patient brought in by EMS for left shoulder pain. Patient states he has chronic shoulder pain and is due to have surgery in 3 weeks. Patient states that his primary care physician will not give him pain medications. Patient states that his orthopedist will not give him pain medication until after the surgery. Patient has been unable to see pain management. Patient states that he tries to come here very infrequently however when the pain becomes so bad he needs to come in for a prescription. The pain is 10 out of 10 and is constant. The pain increased with movement. There is no radiation of the pain. The pain is aching and throbbing in nature. Past History Travel History Traveled to [place] past 21 day No Medical History Any Pertinent Medical History? 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 No Review of Systems Review of Systems Constitutional: Reports: no symptoms. Respiratory: Reports: no symptoms. Cardiovascular: Reports: no symptoms. Gastrointestinal/Abdominal: Reports: no symptoms. Musculoskeletal: Reports: see HPI, joint pain. Neurological/Psychological: Reports: no symptoms. Immunological: Reports: no symptoms. Physical Exam Physical Exam General Appearance: well developed/nourished, alert, awake, anxious, mild distress Eyes: Bilateral: PERRL, EOMI. Neck: normal inspection, supple, full range of motion Cardiovascular/Respiratory: normal breath sounds, normal peripheral pulses, regular rate/rhythm, no respiratory distress Shoulder Left: pain, soft tissue tenderness Elbow Left: normal range of motion, normal inspection Neurologic/Tendon: normal sensation, normal motor functions, normal tendon functions Progress Differential Diagnosis: contusion, dislocation, fracture, sprain Plan of Care: Current Medications Sig/Ernestina Start time Last Medication Dose Stop Time Status Admin Oxycodone HCl 5 MG ONCE ONE 09/23 414 UNVr (Roxicodone) 09/24 415 Departure Departure Disposition: HOME OR SELF CARE Condition: Stable Clinical Impression Primary Impression: Left shoulder pain Qualifiers: Chronicity: chronic Qualified Codes: M25.512 - Pain in left shoulder; G89.29 - Other chronic pain Referrals: DEANNE THRASHER MD (PCP/Family) Additional Instructions: FOLLOW UP WITH YOUR ORTHOPEDIST RETURN FOR ANY CONCERNS Departure Forms: Customer Survey General Discharge Information Prescriptions: Current Visit Scripts Oxycodone HCl 1 CAP PO Q6P PRN PAIN #10 CAP
[2016-09-23] MEDS ORDERED: OXYCODONE HCL5 M2 PO (04:04)
== END 2016-09-23 04:17 ==
LOC: ERH 03:26
DX: M25.512 Pain in left shoulder (principal)

== ENCOUNTER 2017-04-23 14:06 | Inpatient (IN) | payer OTHER ==
[~2017-04-23] VITALS: Ht 175.3 cm; Wt 108.9 kg
[~2017-04-23 14:06] MED LIST changes: +ALPRAZOLAM1 M2 PO; +AMLODIPINE BESY10 M1 PO; -AMLODIPINE10 MG PO; +ASPIRIN EC325 M2 PO; +ASPIRIN EC81 M1 PO; +DAILY MULTIPLE1 EACH PO; +FLUTICASONE PRO16 GM NASB; +GABAPENTIN300 M2 PO; -GABAPENTIN300 MG PO; +IBUPROFEN600 M1 PO; +LISINOPRIL20 M1 PO; +METFORMIN HCL500 M3 PO; +MORPHINE SULFAT15 M4 PO; +OXYCODONE HCL5 M1 PO; +OXYCODONE HCL5 M2 PO; +PERCOCET 5-3251 EACH PO; +TIZANIDINE HCL2 M1 PO; +UNISOM25 M1 PO
--- NOTE | 2017-04-23 14:35 | ED DYSPNEA/ASTHMA COMPLAINT ---
History of Present Illness General Chief Complaint: Dyspnea (COPD, CHF, Other) Stated Complaint: SHORTNESS OF BREATH X 2 TO 3 MONTHS Source: patient, EMS Exam Limitations: no limitations Vital Signs & Intake/Output Vital Signs & Intake/Output Vital Signs Date Time Temp Pulse Resp B/P B/P Pulse O2 O2 Flow FiO2 Mean Ox Delivery Rate 04/239 91 97 04/23 2112 97 BIPAP 40% 04/23 2022 90 96 04/23 97 BIPAP 40% 04/23 1934 96.8 94 24 151/90 95 Nasal 3.0L Cannula 04/23 1725 94 24 148/86 96 Aerosol 8L Mask 04/23 1630 94 Nasal 4.0L Cannula 04/23 1441 93 Nasal 3.0L Cannula 04/23 1436 98.0 96 20 125/67 88 Room Air Allergies Coded Allergies: codeine (Intermediate, STOMACH CRAMPING 09/23/16) morphine (From MS Contin) (Intermediate, PROFUSE SWEATING 09/23/16) Reconcile Medications Alprazolam 1 MG TABLET 1 TAB PO TID PRN ANXIETY (Reported) Amlodipine Besylate 10 MG TABLET 1 TAB PO DAILY HTN (Reported) Aspirin (Ecotrin*) 81 MG TABLET.DR 1 TAB PO DAILY HEART/BLOOD (Reported) Doxylamine Succinate (Unisom) (Unknown Strength) TABLET (Unknown Dose) PO QPM SLEEP (Reported) Fluticasone Propionate 50 MCG/ACTUATION SPRAY.SUSP 2 SPRAY NASB DAILY ALLERGIES (Reported) Gabapentin 300 MG CAPSULE 1 CAP PO TID PAIN (Reported) Ibuprofen 600 MG TABLET 1 TAB PO Q6PRN PRN pain with food Lisinopril 20 MG TABLET 1 TAB PO DAILY HEART (Reported) Metformin HCl 500 MG TABLET 1 TAB PO DAILY DIABETES (Reported) Multivitamin (Daily Multiple Vitamin) 1 EACH TABLET 1 TAB PO DAILY VITAMIN SUPPORT (Reported) Oxycodone HCl 10 MG TABLET 1 TAB PO TIDPRN PRN PAIN (Reported) Triage Note: RECEIVED 67 YO MALE BIBA WITH REPORT OF SHORTNESS OF BREATH X 2 TO 3 MONTHS, WORSE ON EXERTION. NO C/O C.P. PT ALSO REPORTS NOT EATING NORMALLY AND NOT SLEEPING WELL. O2 SATS 87% ON ROOM AIR. PT GIVEN COMBI MED NEB TX, O2 SATS INCREASED TO 95% Triage Nurses Notes Reviewed? yes Onset: Gradual Duration: week(s):, getting worse Timing: recent history Severity: severe HPI: 67YO MALE with hx of asthma presents to ED complaining of dyspnea x weeks, worsening today. Patient reports his neighbors called 911 because he was having difficulty breathing today. Patient also reports cough productive of green/ yellow sputum intermittently for the past several weeks. Patient states that current symptoms are severe, he reports no history of severe asthma exacerbation in the past. Patient with O2 sat of 87% on RA when EMS arrived, he was treated with DuoNeb medication and saturation increased to 95%. Patient denies recent fevers, chills, abdominal pain, chest pain, syncope, diarrhea, constipation. (Amirah Goodson) Past History Travel History Traveled to [place] past 21 day No Medical History Any Pertinent Medical History? 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 No (Amirah Goodson) Review of Systems Review of Systems Constitutional: Reports: no symptoms. EENTM: Reports: no symptoms. Respiratory: Reports: see HPI. Cardiovascular: Reports: no symptoms. GI: Reports: no symptoms. Genitourinary: Reports: no symptoms. Musculoskeletal: Reports: no symptoms. Skin: Reports: no symptoms. Neurological/Psychological: Reports: no symptoms. Hematologic/Endocrine: Reports: no symptoms. Immunologic/Allergic: Reports: no symptoms. All Other Systems: Reviewed and Negative (Amirah Goodson) Physical Exam Physical Exam General Appearance: well developed/nourished, obese, drowsy Head: atraumatic, normal appearance Eyes: Bilateral: normal appearance. Ears, Nose, Throat: hearing grossly normal Neck: normal inspection, supple, full range of motion Respiratory: diffuse expirotory wheezes through out all lung dsouza Cardiovascular: regular rate/rhythm Peripheral Pulses: 2+ radial (R), 2+ radial (L) Gastrointestinal: normal bowel sounds, soft, non-tender, no organomegaly Extremities: normal inspection, normal range of motion Neurologic/Psych: awake, alert, oriented x 3, drowsy Skin: intact, normal color, warm/dry Core Measures ACS in differential dx? Yes CVA/TIA Diagnosis No Sepsis Present: No Sepsis Focused Exam Completed? No (Yudelka FIGUEROA,Amirah Mercer) Progress Differential Diagnosis: asthma, AMI, bronchitis, costochondritis, CHF, COPD, pericarditis, pulmonary embolism, pneumonia, pneumothorax, unstable angina, BENZO TOXICITY Plan of Care: Orders Procedure Date/time Status Nothing by Mouth 04/24 B Active Saline Lock 04/23 2206 Active Misc Message 04/23 2206 Active ED Holding Orders 04/23 2206 Active Admit to inpatient 04/23 2206 Active Vital Signs 04/23 2206 Active Code Status 04/23 2206 Active Patient Data 04/23 2128 Active RAPID VIRAL INFLUENZA A 04/23 1911 Complete BIPAP 04/23 1908 Complete ARTERIAL BLOOD GAS (GEN) 04/23 1707 Complete Add-on Test (ER Only) 04/23 1604 Active URINE DRUG SCREEN FOR ER ONLY 04/23 1604 Complete URINALYSIS 04/23 1604 Complete ETHANOL 04/23 1557 Complete TROPONIN LEVEL 04/23 1436 Complete COMPREHENSIVE METABOLIC PANEL 04/23 1436 Complete CBC WITHOUT DIFFERENTIAL 04/23 1436 Complete EKG 04/23 1417 Active Laboratory Tests 04/23/17 2145: pH 7.22 *L, pCO2 65 *H, pO2 96, HCO3 26, ABG O2 Sat (Measured) 96.0, Carboxyhemoglobin 0.3 L, O2 Concentration % 40, Respiration Rate 16, O2 Delivery Method BIPAP, Vent Mode ST, Expiratory Pressure 6, Inspiratory Pressure 18, Phlebotomy Draw Site LEFT BRACHIAL 04/23/17 1846: pH 7.21 *L, pCO2 59 H, pO2 77 L, HCO3 23, ABG O2 Sat (Measured) 92.0 L, Carboxyhemoglobin 0.5 L, O2 Concentration % 4L, O2 Delivery Method NC, Phlebotomy Draw Site LEFT BRACHIAL 04/23/17 1710: Urine Opiates Screen 1691.00, Methadone Screen 64, Barbiturate Screen < 60, Ur Phencyclidine Scrn < 6.00, Amphetamines Screen < 100, U Benzodiazepines Scrn > 800 H, Urine Cocaine Screen < 50, Urine Cannabis Screen < 5.00, Urinalysis MOD H, Urine Color YEL, Urine Clarity HAZY H, Urine pH 6.0, Ur Specific [place]on >= 1.030, Urine Protein 100 H, Urine Ketones NEG, Urine Nitrite NEG, Urine Bilirubin NEG, Urine Urobilinogen 0.2, Ur Leukocyte Esterase NEG, Ur Microscopic SEDIMENT EXAMINED, Urine RBC 1-3, Urine WBC RARE, Ur Epithelial Cells FEW, Urine Bacteria RARE H, Hyaline Casts 5-10 H, Granular Casts 1-3 H, Urine Mucus MOD H, Urine Hemoglobin MOD H, Urine Glucose NEG 04/23/17 1557: Anion Gap 14, Estimated GFR > 60, BUN/Creatinine Ratio 12.5, Glucose 140 H, Calcium 9.3, Total Bilirubin 0.2, AST 66 H, ALT 55, Alkaline Phosphatase 94, Troponin I < 0.01, Total Protein 8.1, Albumin 4.2, Globulin 3.9, Albumin/ Globulin Ratio 1.1, CBC w Diff NO MAN DIFF REQ, RBC 5.06, MCV 82.8, MCH 25.7 L, RDW 22.7 H, MPV 8.5, Gran % 39.5 L, Lymphocytes % 34.0, Monocytes % 19.3 H, Eosinophils % 6.6 H, Basophils % 0.6, Absolute Granulocytes 2.4, Absolute Lymphocytes 2.1, Absolute Monocytes 1.2 H, Absolute Eosinophils 0.4, Absolute Basophils 0, PUBS MCHC 31.0 L, Serum Alcohol < 10.0 Microbiology 04/23 1934 NASOPHARYN: Influenza Virus A & B Rapid Smear - COMP Repeat lung exam following continuous albuterol nebulizer with persistent wheezing. Patient hypoxic at 88% on room air while at rest, requiring supplemental oxygen while here in the emergency department. The patient does not use supplemental oxygen while at home. Screen shows elevated benzodiazepines and opiates for which the patient is prescribed. ABG also with abnormality, hypercarbic respiratory failure, likely secondary to benzodiazepine toxicity. Given patient's ABG BiPap initiated, repeat ABG will be done in one hour. Dr. Piedra present to see and evaluate patient. He agrees with this plan. Dr. Piedra recommends telemetry admission and inpatient stress level and need for persistent monitoring. The patient was discussed with Dr. Card regarding telemetry admission. Diagnostic Imaging: Viewed by Me: Radiology Read. Discussed w/RAD: Radiology Read. CXR Impression: PATIENT: STEPHANY CUMMINS JR PRESENT AGE: 67 PATIENT ACCOUNT NO: [id number] : 52 LOCATION: [facility] ORDERING PHYSICIAN: Amirah FIGUEROA SERVICE DATE: 04/23/17-7758 EXAM TYPE: RAD - XRY-CHEST XRAY, TWO VIEWS EXAMINATION: XR CHEST CLINICAL INFORMATION: Dyspnea and hypoxia. Assess for pneumonia, CHF or effusion. COMPARISON: CT scan of the chest 03/31/2017 and x-ray 02/07/2014. TECHNIQUE: Frontal and lateral views of the chest were obtained. FINDINGS: The lungs are both poorly expanded, similar compared to the prior study. Linear opacity at the right midzone is consistent with atelectasis. There is no definite focal consolidation. The cardiac silhouette is nonenlarged. There is equivocal mild prominence of the central pulmonary vasculature, which is difficult to assess due to bronchovascular crowding. There are no pleural effusions. The left shoulder hemiarthroplasty changes are redemonstrated. There are no acute osseous findings. IMPRESSION: 1. Poorly expanded lung dsouza bilaterally with bronchovascular crowding. There is atelectasis at the right midzone. 2. There are no definite acute cardiopulmonary findings. DICTATED BY: Reza Mahoney MD DATE/TIME DICTATED:04/23/171526 SCREEN STRETCHER:IGOR DATE/TIME TRANSCRIBED:04/23/171526 CONFIDENTIAL, DO NOT COPY WITHOUT APPROPRIATE AUTHORIZATION. <Electronically signed in Other Vendor System> SIGNED BY: Reza Mahoney MD 04/23/17 1534 Initial ED EKG: sinus rhythm @92bpm, nonspecific ST changes Prior EKG: changed (03/23/14 subtle t wave change) (Yudelka FIGUEROA,Amirah Mercer) Departure Departure Disposition: STILL A PATIENT Condition: Stable Clinical Impression Primary Impression: Hypercapnic respiratory failure Secondary Impressions: Asthma exacerbation, Benzodiazepine toxicity Referrals: Ursula Garner MD (PCP/Family) Departure Forms: Customer Survey General Discharge Information Admission Note Spoke With: Fay Card MD Documentation of Exam: Documentation of any treatments & extenuating circumstances including Concerns Regarding Discharge (functional status, medication knowledge or non-compliance, living conditions, etc.) that warrant an admission rather than observation: [ Acute hypercarbic respiratory failure, asthma exacerbation, benzodiazepine toxicity, requiring supplemental oxygen, IV steroids, possible pulmonology consult, BiPAP, respiratory therapy, persistent on a touring given drowsy status ] (Yudelka FIGUEROA,Amirah Mercer) Departure Comments I have seen and evaluated the patient and I agree with the PAs evaluation. I reevaluated him multiple times. He has an elevated benzodiazepine level. Hypercarbic respiratory failure. He was placed on BiPAP. He was admitted to the telemetry unit, upon my recommendation for continuous pulse oximetry, continuing BiPAP, consider pulmonary consultation. (César Piedra DO) Critical Care Note Critical Care Note Critical Care Time: non-applicable (Yudelka FIGUEROA,Amirah Mercer)
--- NOTE | 2017-04-23 15:34 | RADIOLOGY REPORT ---
EXAMINATION: XR CHEST CLINICAL INFORMATION: Dyspnea and hypoxia. Assess for pneumonia, CHF or effusion. COMPARISON: CT scan of the chest 03/31/2017 and x-ray 02/07/2014. TECHNIQUE: Frontal and lateral views of the chest were obtained. FINDINGS: The lungs are both poorly expanded, similar compared to the prior study. Linear opacity at the right midzone is consistent with atelectasis. There is no definite focal consolidation. The cardiac silhouette is nonenlarged. There is equivocal mild prominence of the central pulmonary vasculature, which is difficult to assess due to bronchovascular crowding. There are no pleural effusions. The left shoulder hemiarthroplasty changes are redemonstrated. There are no acute osseous findings. IMPRESSION: 1. Poorly expanded lung dsouza bilaterally with bronchovascular crowding. There is atelectasis at the right midzone. 2. There are no definite acute cardiopulmonary findings.
[2017-04-23 16:08] LABS: ABSOLUTE BASOPHIL COUNT 0 /CUMM (0.0-0.2); ABSOLUTE EOSINOPHIL COUNT 0.4 /CUMM (0.0-0.7); ABSOLUTE GRANULOCYTE CT 2.4 /CUMM (1.4-6.5); ABSOLUTE LYMPH COUNT 2.1 /CUMM (1.2-3.4); ABSOLUTE MONOCYTE COUNT 1.2 /CUMM (0.10-0.60); BASOPHIL % 0.6 % (0.0-2.0); EOSINOPHIL % 6.6 % (0-5); GRANULOCYTE % 39.5 % (42.2-75.2); HEMATOCRIT 41.9 % (42-52); MEAN CORPUSCULAR HGB 25.7 PG (27.0-31.0); MEAN CORPUSCULAR VOLUME 82.8 FL (80.0-94.0); MEAN PLATELET VOLUME 8.5 FL (7.4-10.4); PLATELET COUNT 239 /CUMM (130-400); RBC DISTRIBUTION WIDTH 22.7 % (11.5-14.5); RED BLOOD CELL CT 5.06 /CUMM (4.70-6.10)
[2017-04-23] MEDS ORDERED: OXYCODONE HCL10 M2 PO (17:23)
--- NOTE | 2017-04-23 21:42 | History & Physical ---
Sesar Durand 04/23/17 2141: General Information and HPI History of Present Illness: Mr. Pollock is a 67 yo m with a PMH significant for NIDDM, Hepatitis C, Asthma, BCC on scalp, HTN epidural and paraspinal abscess s/p decompression, lumbar laminectomy, MSSA bacteremia s/p L shoulder arthroscopic debridement, synovectomy, who presents to the ED with worsening SOB for 1 day. Patient poor historian. He reports that he has been SOB with exertion for a couple of months but has been progressively worsening. As per patient today his friends advised him to go to ED because he "looked horrible". He also has a chronic nonproductive cough that he reports persisted after an episode of PNA treated with Azithromycin. He also reports persistent lateral and posterior chest pain after fall in March with subsequent rib fractures. He denies IBANEZ, fever, chills, palpitations, nausea, vomiting, metadone use, urinary or bowel changes. Allergies/Medications Allergies: Coded Allergies: codeine (Intermediate, STOMACH CRAMPING 09/23/16) morphine (From MS Contin) (Intermediate, PROFUSE SWEATING 09/23/16) Home Med list Alprazolam 1 MG TABLET 1 TAB PO TID PRN ANXIETY (Reported) Amlodipine Besylate 10 MG TABLET 1 TAB PO DAILY HTN (Reported) Aspirin (Ecotrin*) 81 MG TABLET.DR 1 TAB PO DAILY HEART/BLOOD (Reported) Doxylamine Succinate (Unisom) (Unknown Strength) TABLET (Unknown Dose) PO QPM SLEEP (Reported) Fluticasone Propionate 50 MCG/ACTUATION SPRAY.SUSP 2 SPRAY NASB DAILY ALLERGIES (Reported) Gabapentin 300 MG CAPSULE 1 CAP PO TID PAIN (Reported) Ibuprofen 600 MG TABLET 1 TAB PO Q6PRN PRN pain with food Lisinopril 20 MG TABLET 1 TAB PO DAILY HEART (Reported) Metformin HCl 500 MG TABLET 1 TAB PO DAILY DIABETES (Reported) Multivitamin (Daily Multiple Vitamin) 1 EACH TABLET 1 TAB PO DAILY VITAMIN SUPPORT (Reported) Oxycodone HCl 10 MG TABLET 1 TAB PO TIDPRN PRN PAIN (Reported) Past History Travel History Traveled to [place] past 21 day No Medical History Neurological: NONE EENT: NONE Cardiovascular: hypertension Respiratory: NONE Gastrointestinal: NONE Hepatic: NONE Renal: NONE Musculoskeletal: chronic pain SEPTIC SHOULDER INFECTION SEPTIC SPINE Psychiatric: OPIOD ABUSE (HISTORY) Endocrine: diabetes Blood Disorders: NONE Cancer(s): NONE 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 Exam & Diagnostic Data Last 24 Hrs of Vital Signs/I&O Vital Signs Date Time Temp Pulse Resp B/P B/P Pulse O2 O2 Flow FiO2 Mean Ox Delivery Rate 04/23 2219 96.6 80 21 129/66 96 BIPAP 30% 04/23 2199 89 95 04/23 2148 91 97 04/23 2112 97 BIPAP 40% 04/23 2022 90 96 04/23 97 BIPAP 40% 04/23 193 96.8 94 24 151/90 95 Nasal 3.0L Cannula 04/23 1725 94 24 148/86 96 Aerosol 8L Mask 04/23 1630 94 Nasal 4.0L Cannula 04/23 1441 93 Nasal 3.0L Cannula 04/23 1436 98.0 96 20 125/67 88 Room Air Intake & Output 04/23 1600 04/23 0800 04/23 0000 Intake Total Output Total Balance Patient 240 lb Weight Weight Reported by Patient Measurement Method Physical Exam General Appearance Alert, Oriented X3, Cooperative, Mild Distress Skin BCC lesion on R-side of head HEENT Atraumatic, PERRLA, EOMI Neck Supple, No JVD, No thryomegaly Cardiovascular Regular Rate Lungs BL wheezing, Low breath sounds Abdomen Normal Bowel Sounds, Soft, No Tenderness, Large abdominal girth Neurological Normal Speech Extremities No Edema, RLE protrusion, R hip surgical scar Last 24 Hrs of Labs/Arnie: Laboratory Tests 04/23/17 2145: pH 7.22 *L, pCO2 65 *H, pO2 96, HCO3 26, ABG O2 Sat (Measured) 96.0, Carboxyhemoglobin 0.3 L, O2 Concentration % 40, Respiration Rate 16, O2 Delivery Method BIPAP, Vent Mode ST, Expiratory Pressure 6, Inspiratory Pressure 18, Phlebotomy Draw Site LEFT BRACHIAL 04/23/17 1846: pH 7.21 *L, pCO2 59 H, pO2 77 L, HCO3 23, ABG O2 Sat (Measured) 92.0 L, Carboxyhemoglobin 0.5 L, O2 Concentration % 4L, O2 Delivery Method NC, Phlebotomy Draw Site LEFT BRACHIAL 04/23/17 1710: Urine Opiates Screen 1691.00, Methadone Screen 64, Barbiturate Screen < 60, Ur Phencyclidine Scrn < 6.00, Amphetamines Screen < 100, U Benzodiazepines Scrn > 800 H, Urine Cocaine Screen < 50, Urine Cannabis Screen < 5.00, Urinalysis MOD H, Urine Color YEL, Urine Clarity HAZY H, Urine pH 6.0, Ur Specific [place] >= 1.030, Urine Protein 100 H, Urine Ketones NEG, Urine Nitrite NEG, Urine Bilirubin NEG, Urine Urobilinogen 0.2, Ur Leukocyte Esterase NEG, Ur Microscopic SEDIMENT EXAMINED, Urine RBC 1-3, Urine WBC RARE, Ur Epithelial Cells FEW, Urine Bacteria RARE H, Hyaline Casts 5-10 H, Granular Casts 1-3 H, Urine Mucus MOD H, Urine Hemoglobin MOD H, Urine Glucose NEG 04/23/17 1557: Anion Gap 14, Estimated GFR > 60, BUN/Creatinine Ratio 12.5, Glucose 140 H, Calcium 9.3, Total Bilirubin 0.2, AST 66 H, ALT 55, Alkaline Phosphatase 94, Troponin I < 0.01, Total Protein 8.1, Albumin 4.2, Globulin 3.9, Albumin/ Globulin Ratio 1.1, CBC w Diff NO MAN DIFF REQ, RBC 5.06, MCV 82.8, MCH 25.7 L, RDW 22.7 H, MPV 8.5, Gran % 39.5 L, Lymphocytes % 34.0, Monocytes % 19.3 H, Eosinophils % 6.6 H, Basophils % 0.6, Absolute Granulocytes 2.4, Absolute Lymphocytes 2.1, Absolute Monocytes 1.2 H, Absolute Eosinophils 0.4, Absolute Basophils 0, PUBS MCHC 31.0 L, Serum Alcohol < 10.0 Microbiology 04/23 2216 LOWER RESP: Respiratory Culture - ORD 04/23 2216 LOWER RESP: Gram Stain - ORD 04/23 1934 NASOPHARYN: Influenza Virus A & B Rapid Smear - COMP Diagnostic Data EKG Results NSR Diffused flat t waves HR: 92 QTc: 416 CXR Results 04/23/17-1436 IMPRESSION: 1. Poorly expanded lung dsouza bilaterally with bronchovascular crowding. There is atelectasis at the right midzone. 2. There are no definite acute cardiopulmonary findings. Other Results 04/23/17-2334 CT CHEST WO IV CONTRAST IMPRESSION: Bronchial wall thickening with scattered bronchial filling defects could be associated with small airways process. Aspiration is possible. Linear basilar opacities are similar to prior and favors atelectasis. No dense consolidation. Healing posterior left 10th rib fracture Assessment/Plan Assessment: Mr. Pollock is a 67 yo m with a PMH significant for NIDDM, Hepatitis C, Asthma, BCC on scalp, HTN epidural and paraspinal abscess s/p decompression, lumbar laminectomy, MSSA bacteremia s/p L shoulder arthroscopic debridement, synovectomy, who presents to the ED with worsening SOB for 1 day admitted to telemetry for Acute hypoxic hypercapnic respiratory failure. Acute hypoxic hypercapnic respiratory failure most likely multifactorial 2/2 Benzodiazepine and Opiate intoxication, Asthma vs COPD exacerbation, undiagnosed OHA/ADE, shallow breaths due to pain ABG on admission 7.21/59/77 ON 4LNC>>7.22/65/96 on BiPAP. On admission patient was noted to be disoriented and lethargic. CXR demonstrated R midlobe atelectasis * Admit to telemetry for close monitoring * Vitals q shift * Neurocheck q4h * Continuous BiPAP, TRC/nebs PRN * Repeat ABG in 4h * Serial trop/ECG to r/o ACS * Follow up BNP, CPK level * IV Methylprednisolone BID * IV Azithromycin * Pulmonology consult in a.m. * Avoid sedative medications * Continue home meds except Gabapentin and Alprazolam * CT chest to r/o acute pathology History of chronic pain, IDDM * Accuchecks and Novolog SS * Oxycodone 5mg q8 Diet: Diabetic DVT ppx: sc Heparin As Ranked By This Provider Problem List: 1. Chronic pain 2. Hypercapnic respiratory failure 3. Benzodiazepine toxicity Core Measures/Misc (12/20) Acute Coronary Syndrome ACS Diagnosis: No Congestive Heart Failure Congestive Heart Failure Diagnosis No Cerebrovascular Accident CVA/TIA Diagnosis: No VTE (View Protocol) VTE Risk Factors Obesity No Mechanical VTE Prophylaxis d/t N/A MechProphylax Ordered No VTE Pharm Prophylaxis d/t NA PharmProphylax ordered Sepsis (View protocol) Sepsis Present: No Phuong Francis 04/23/17 2337: Resident Review Statement Resident Statement: examined this patient, discussed with advisory intern, agreed with advisory intern, discussed with family, reviewed images, amended to note Other Findings: 67 year old man with pmh of multiple bone fractures due to trauma and accidents, DM,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 According to the patient he had an episode of URI about couple of months ago which was treated with Z-Henry but his shortness of breath and coughing did not go of a adult and increased gradually. He has severe shortness of breath on exertion and today according to him his friends call ambulance because he was so short of breath. Patient reports that he quit smoking a couple of years and he was a heavy smoker before that, denies alcohol intake, but does report taking Xanax and oxycodone every day for anxiety and pain. At the moment patient is on BiPAP and denies any chest pain, nausea, vomiting, headache, abdominal pain but he does have generalized pain in the body shortness of breath. Patient denies any fever or chills but had dry coughing and occasional wheezing a couple of months. Vital signs on arrival are notable for hypoxia which was improved with supplemental oxygen and BiPAP. Physical exam and it and oriented 3 Scattered wheezing bilaterally the upper lungs Heart rate regular with normal S1 and S2 Abdomen distended but nontender Multiple scars of the surgeries in the extremities but no apparent edema WBC 6.4, hemoglobin 13.5, monocytes 19.3, and was initially 6.6, toxicology was positive for benzodiazepines more than 800 and opioids 1691, chemistry was notable for glucose 140 and AST 66 Chest x-ray has poor quality but previous x-ray of the ribs showed fracture of the left 11 10 rib Troponin 0.01 EKG showed normal sinus rhythm, rate 92, QTC 446, wide spread flattening of the T Initial ABG showed pH 7.21, PCO2 59, PO2 77 subsequent ABG after 1 hour showed pH 7.22 PCO2 was 65 (on BIPAP) Assessment Acute hypercapnic hypoxic respiratory failure most likely multifactorial for possible COPD/asthma exacerbation, hypoventilation syndrome, medication side effects History of hypertension History of chronic pain History of anxiety History of hyperlipidemia History of diabetes on metformin History of spinal abscess and multiple surgeries Plan Admit to telemetry EKG and troponin 2 Check BNP Check CPK Continue BiPAP and check ABG at 12 AM Pulmonology consult in the morning IV Solu-Medrol 40 every 12 hours and azithromycin IV for 3-5 days Continue amlodipine and statin Hold benzodiazepine Continue low-dose oxycodone for pain management when necessary Hold metformin and put the patient on diabetic diet, sliding scale insulin, Accu -Cheks Continue aspirin, Continue lisinopril and norvasc chest ct to evlaution trc nebs hold gabapentin Full code, oxycodone for pain, diabetic diet, DVT prophylaxis is sub q yanni and Fay Girard 04/24/17 0135: Attending MD Review Statement Attending Statement Attending MD Statement: examined this patient, discuss w/resident/PA/GLASS FITTER, agreed w/resident/PA/GLASS FITTER, reviewed EMR data (avail), reviewed images, amended to note Attending Assessment/Plan: CC: Shortness of breath PMH: HTN, depression/anxiety, DM, history of spinal abscess and septic arthritis with MSSA, multiple fractures and chronic pain History is ambiguous, patient's neighbor called 911 because they saw patient having difficulty breathing today. Patient states that he has been noticing worsening of shortness of breath since last 2-3 months more so in last few weeks associated with dyspnea on exertion, dry cough but denies palpitations, fever, chills, nausea or vomiting. He endorses left-sided chest pain because of "broken ribs". Patient was treated with azithromycin few months back without much symptom relief. Vitals: T max 98.0, min 96.8, pulse in 90s, RR 20, blood pressure 120/67, saturating 88% on room air, saturating 93% on 4 L nasal cannula On exam: Sleepy but arousable, oriented, cooperative, no acute distress, neck supple, JVD normal, no lymphadenopathy, pupils equal round reactive, no focal neurological deficit, no dependent edema, no obvious skin rashes or inflammation , right leg deformity, CVS: S1-S2, RRR. RS: Markedly decreased air entry L<R . Abdomen: Soft, NT, ND, bowel sounds present. Labs: WBC 6.0, hemoglobin 13.0, hematocrit 41.9, platelet 239, monocytes 19.3%, inducible for 6.6%, sodium 143, potassium 4.4, chloride 102, bicarbonate 28, BUN 15, creatinine 1.2, glucose 140, calcium 9.3, AST 66 otherwise LFT unremarkable, troponin less than 0.01 urinary unremarkable AB.21/59/77/23 and 4 L nasal cannula U tox positive for opiates 1691, methadone 64, benzodiazepines >800 Rapid Influenza negative CXR: 1. Poorly expanded lung dsouza bilaterally with bronchovascular crowding. There is atelectasis at the right midzone. 2. There are no definite acute cardiopulmonary findings. Assessment and plan 67-year-old male with multiple comorbidities presented in ER after his neighbor calling EMS for patient being acute short of breath. Upon arrival in ER patient states that he has been having shortness of breath since last 2-3 months progressively worsened more so since last 2 weeks, he describes shortness of breath more as a dyspnea on exertion associated with nonproductive cough. Denies any fever or chills. He has left-sided chest pain because of his recent rib fractures. Of note patient had been in ER in March for mechanical fall and rib fracture but at that time patient did not complain of any shortness of breath or cough this history is not correlating. Patient has markedly decreased air entry bilaterally more so on the left side, no obvious crackles or wheezing heard. ABG showed hypercapnic respiratory failure this appears acute. U tox is positive for benzodiazepines, opiates, methadone level none with significant, alcohol level negative. Patient does not appear to be in significant respiratory distress instead he was very sleepy on arrival in ER, gradually improved over time. Given this clinical picture with hypercapnia, suspect overdose with benzodiazepines along with combination of obesity hypoventilation, ADE and decreased respiratory efforts secondary to rib fractures. A component of COPD/ asthma cannot be denied at this point. Patient is easily arousable, provides the history details and tolerating BiPAP, but after discussing with Dr. Piedra we decided that he would benefit from pulse oximetry monitoring so we will admit him on telemetry. + Acute hypercapnic respiratory failure : Multifactorial asthma/?COPD exacerbation, obesity hypoventilation, ADE, polypharmacy + History of HTN, depression/anxiety, DM, history of spinal abscess and septic arthritis with MSSA, multiple fractures and chronic pain - Admit to telemetry for continuous pulse oxy - Continue BiPAP - Repeat ABG in 4 hours - Check CPK, proBNP - Serial troponin and EKGs - Check CT chest without contrast - Continue IV methylprednisolone 40 mg twice a day - Pulmonology consult in a.m. - IV azithromycin - TRC nebulization with albuterol and ipratropium scheduled and when necessary - Mucinex scheduled twice a day - Continue rest of the home medications - Careful about pain medications given his obvious potential and suspicion of benzodiazepine overdose - Neurochecks - DVT prophylaxis
--- NOTE | 2017-04-24 00:34 | CT SCAN REPORT ---
EXAMINATION: CT CHEST WITHOUT CONTRAST CLINICAL INFORMATION: Sleep apnea on BiPAP. Follow-up rib fracture and emphysema. COMPARISON: Chest radiograph from 04/23/2017. Chest CT 03/31/2017. TECHNIQUE: Multidetector volumetric CT imaging of the chest was done. Axial MIP volume rendering provided. Sagittal and coronal reformatted images were obtained. DLP: 766 mGy-cm FINDINGS: LUNGS: The central airways are patent. Bronchial wall thickening is noted, particularly at the lung bases with scattered bronchial filling defects. Linear bibasilar opacities are present suggestive of atelectasis. This appearance is similar to the prior. There is no dense consolidation. No pneumothorax or pleural effusion. MEDIASTINUM: The heart is normal in size. No pericardial effusion. Coronary artery calcifications are present. No mediastinal lymphadenopathy. The thyroid gland is unremarkable. AXILLA: No lymphadenopathy. UPPER ABDOMEN: Unremarkable. OSSEOUS STRUCTURES: No acute or suspicious osseous abnormality. Healing posterior left 10th rib fracture is visualized. The 11th rib fracture is not fully included on the [id number] of this study. No acute rib fracture. Chronic nonunited right lateral ninth rib fracture. Left shoulder arthroplasty with antibiotic spacer noted. IMPRESSION: Bronchial wall thickening with scattered bronchial filling defects could be associated with small airways process. Aspiration is possible. Linear basilar opacities are similar to prior and favors atelectasis. No dense consolidation. Healing posterior left 10th rib fracture.
--- NOTE | 2017-04-24 01:40 | Admission Certification ---
Admission Certification Certification Statement - As attending physician, I certify that at the time of - admission, based on clinical presentation, severity of - symptoms, need for further diagnostic testing and - therapeutic interventions, and risk of adverse outcomes - without in-hospital treatment, in my clinical assessment, - this patient requires an acute hospital stay for a minimum - of two nights or longer. I have also considered psychsocial - factors such as support system, advanced age, financial - issues, cognitive issues, and failed out-patient treatments, - past re-admission history, safety of patient, and lack of - compliance as applicable. Specific rationale supporting this admission is: Acute Hypercapnic respiratory failure
[2017-04-24 02:26] VITALS: BP 144/74
[2017-04-24 07:00] VITALS: BP 152/94
[2017-04-24 07:00] LABS: ABSOLUTE BASOPHIL COUNT 0 /CUMM (0.0-0.2); ABSOLUTE EOSINOPHIL COUNT 0 /CUMM (0.0-0.7); ABSOLUTE GRANULOCYTE CT 2.2 /CUMM (1.4-6.5); ABSOLUTE LYMPH COUNT 0.6 /CUMM (1.2-3.4); ABSOLUTE MONOCYTE COUNT 0.2 /CUMM (0.10-0.60); BASOPHIL % 0.5 % (0.0-2.0); EOSINOPHIL % 0 % (0-5); MEAN CORPUSCULAR HGB 26.1 PG (27.0-31.0); MEAN CORPUSCULAR VOLUME 81.5 FL (80.0-94.0); MEAN PLATELET VOLUME 9.1 FL (7.4-10.4); PLATELET COUNT 213 /CUMM (130-400); RBC DISTRIBUTION WIDTH 21.8 % (11.5-14.5); RED BLOOD CELL CT 4.49 /CUMM (4.70-6.10)
[2017-04-24 07:05] LABS: HEMATOCRIT 36.6 % (42-52)
--- NOTE | 2017-04-24 09:46 | PN- Housestaff ---
See Addendum Didier DOLAN,Anmol 04/24/17 0944: Subjective Follow-up For: respiratory failure Tele-Events Since Last Visit: SR 70-80 Subjective: No overnight events. Feels much better. Complaining of some chronic pain. NO CP or SOB Review of Systems Constitutional: Reports: no symptoms. EENTM: Reports: no symptoms. Cardiovascular: Reports: no symptoms. Respiratory: Reports: no symptoms. Gastrointestinal: Reports: no symptoms. Genitourinary: Reports: no symptoms. Musculoskeletal: Reports: see HPI. Skin: Reports: no symptoms. Neurological/Psychological: Reports: no symptoms. Hematologic/Endocrine: Reports: no symptoms. Immunologic/Allergic: Reports: no symptoms. Objective Last 24 Hrs of Vital Signs/I&O Vital Signs Date Time Temp Pulse Resp B/P B/P Pulse O2 O2 Flow FiO2 Mean Ox Delivery Rate 04/24 0853 80 150/90 04/24 0853 80 150/90 04/24 0804 78 94 04/24 0700 98.0 76 20 152/94 93 04/24 0555 89 98 04/24 0247 77 98 04/24 0226 98.4 80 20 144/74 95 BIPAP 30% 04/24 0127 BIPAP 30% 04/24 0035 97.4 82 22 153/78 94 BIPAP 30% 04/24 0007 85 93 04/23 2220 96.6 80 21 129/66 96 BIPAP 30% 04/23 2200 89 95 04/23 2149 91 97 04/23 2113 97 BIPAP 40% 04/23 202 90 96 04/23 97 BIPAP 40% 04/23 1935 96.8 94 24 151/90 95 Nasal 3.0L Cannula 04/23 1725 94 24 148/86 96 Aerosol 8L Mask 04/23 1630 94 Nasal 4.0L Cannula 04/23 1441 93 Nasal 3.0L Cannula 04/23 1436 98.0 96 20 125/67 88 Room Air Intake & Output 04/24 1600 04/24 0800 04/24 0000 Intake Total 150 Output Total 250 300 Balance -100 -300 Intake, IV 150 Output, Urine 250 300 Patient 240 lb Weight Weight Reported by Patient Measurement Method Physical Exam General Appearance: Alert, Oriented X3, Cooperative, No Acute Distress Cardiovascular: Regular Rate, Normal S1, Normal S2 Lungs: mild rhonci and wheezing Abdomen: Normal Bowel Sounds, Soft, No Tenderness Extremities: No Edema Current Medications: Current Medications Sig/Ernestina Start time Last Medication Dose Route Stop Time Status Admin Acetaminophen 975 MG ONCE ONE 04/24 0830 DC 04/24 PO 04/24 0831 0854 Acetaminophen 650 MG Q6P PRN 04/23 2230 DC PO Albuterol Sulfate 18 ML ONCE ONE 04/23 1500 DC 04/23 INH 04/23 1501 1630 Amlodipine Besylate 10 MG DAILY 04/24 1000 AC 04/24 PO 0853 Aspirin Buffered 81 MG DAILY 04/24 1000 AC 04/24 PO 0855 Azithromycin 500 MG DAILY@0000 04/25 0000 AC Sodium Chloride 250 ML IV Azithromycin 500 MG DAILY 04/23 2345 DC 04/24 Sodium Chloride 250 ML IV 0038 Azithromycin 500 MG DAILY 04/23 2330 CAN Sodium Chloride 250 ML IV Enoxaparin Sodium 40 MG DAILY 04/24 1000 AC 04/24 SC 0908 Guaifenesin 600 MG Q12 04/24 1000 AC 04/24 PO 0853 Heparin Sodium 5,000 UNIT Q8 04/24 0600 AC 04/24 (Porcine) SC 0655 Insulin Aspart 0 TIDAC 04/24 0800 AC 04/24 SC 0854 Lisinopril 20 MG DAILY 04/24 1000 AC 04/24 PO 0853 Methylprednisolone 40 MG BID 04/24 1000 AC 04/24 IV 0854 Methylprednisolone 60 MG Q8 04/24 0600 DC IV Methylprednisolone 0 .STK-MED ONE 04/23 1604 DC .ROUTE Methylprednisolone 125 MG ONCE ONE 04/23 1500 DC 04/23 IV 04/23 1501 1605 Multivitamins 1 TAB DAILY 04/24 1000 AC 04/24 Therapeutic PO 0854 Oxycodone HCl 0 .STK-MED ONE 04/24 0049 DC PO Oxycodone HCl 5 MG Q8 PRN 04/23 2345 AC 04/24 PO 0906 Last 24 Hrs of Lab/Arnie Results Last 24 Hrs of Labs/Mics: Laboratory Tests 04/24/17 0623: Anion Gap 13, Estimated GFR > 60, BUN/Creatinine Ratio 21.1, CBC w Diff NO MAN DIFF REQ, RBC 4.49 L, MCV 81.5, MCH 26.1 L, RDW 21.8 H, MPV 9.1, Gran % 74.0, Lymphocytes % 19.8 L, Monocytes % 5.7, Eosinophils % 0, Basophils % 0.5, Absolute Granulocytes 2.2, Absolute Lymphocytes 0.6 L, Absolute Monocytes 0.2, Absolute Eosinophils 0, Absolute Basophils 0, PUBS MCHC 32.0 L 04/24/17 0620: pH 7.36, pCO2 37, pO2 74 L, HCO3 21, ABG O2 Sat (Measured) 95.0 L, P-50 (Temp Corrected) N, Carboxyhemoglobin 0.7 L, O2 Concentration % .30, Respiration Rate 20, O2 Delivery Method BIPAP, Vent Mode ST, Expiratory Pressure 6, Inspiratory Pressure 24, Phlebotomy Draw Site LEFT RADIAL 04/24/17 0025: Troponin I < 0.01 04/23/17 2145: pH 7.22 *L, pCO2 65 *H, pO2 96, HCO3 26, ABG O2 Sat (Measured) 96.0, Carboxyhemoglobin 0.3 L, O2 Concentration % 40, Respiration Rate 16, O2 Delivery Method BIPAP, Vent Mode ST, Expiratory Pressure 6, Inspiratory Pressure 18, Phlebotomy Draw Site LEFT BRACHIAL 04/23/17 1846: pH 7.21 *L, pCO2 59 H, pO2 77 L, HCO3 23, ABG O2 Sat (Measured) 92.0 L, Carboxyhemoglobin 0.5 L, O2 Concentration % 4L, O2 Delivery Method NC, Phlebotomy Draw Site LEFT BRACHIAL 04/23/17 1710: Urine Opiates Screen 1691.00, Methadone Screen 64, Barbiturate Screen < 60, Ur Phencyclidine Scrn < 6.00, Amphetamines Screen < 100, U Benzodiazepines Scrn > 800 H, Urine Cocaine Screen < 50, Urine Cannabis Screen < 5.00, Urinalysis MOD H, Urine Color YEL, Urine Clarity HAZY H, Urine pH 6.0, Ur Specific [place] >= 1.030, Urine Protein 100 H, Urine Ketones NEG, Urine Nitrite NEG, Urine Bilirubin NEG, Urine Urobilinogen 0.2, Ur Leukocyte Esterase NEG, Ur Microscopic SEDIMENT EXAMINED, Urine RBC 1-3, Urine WBC RARE, Ur Epithelial Cells FEW, Urine Bacteria RARE H, Hyaline Casts 5-10 H, Granular Casts 1-3 H, Urine Mucus MOD H, Urine Hemoglobin MOD H, Urine Glucose NEG 04/23/17 1557: Anion Gap 14, Estimated GFR > 60, BUN/Creatinine Ratio 12.5, Glucose 140 H, Calcium 9.3, Total Bilirubin 0.2, AST 66 H, ALT 55, Alkaline Phosphatase 94, Creatine Kinase 790 H, Troponin I < 0.01, Ufo-L-Xslubkehloj Pept 113, Total Protein 8.1, Albumin 4.2, Globulin 3.9, Albumin/Globulin Ratio 1.1, CBC w Diff NO MAN DIFF REQ, RBC 5.06, MCV 82.8, MCH 25.7 L, RDW 22.7 H, MPV 8.5, Gran % 39.5 L, Lymphocytes % 34.0, Monocytes % 19.3 H, Eosinophils % 6.6 H, Basophils % 0.6, Absolute Granulocytes 2.4, Absolute Lymphocytes 2.1, Absolute Monocytes 1.2 H, Absolute Eosinophils 0.4, Absolute Basophils 0, PUBS MCHC 31.0 L, Serum Alcohol < 10.0 Microbiology 04/23 2216 LOWER RESP: Respiratory Culture - COLB 04/23 2216 LOWER RESP: Gram Stain - COLB 04/23 1934 NASOPHARYN: Influenza Virus A & B Rapid Smear - COMP Assessment/Plan Assessment: Mr. Pollock is a 67 yo m with a PMH significant for NIDDM, Hepatitis C, Asthma, BCC on scalp, HTN epidural and paraspinal abscess s/p decompression, lumbar laminectomy, MSSA bacteremia s/p L shoulder arthroscopic debridement, synovectomy, who presents to the ED with worsening SOB for 1 day admitted to telemetry for Acute hypoxic hypercapnic respiratory failure. Problem list: 1. Acute hypoxic hypercapnic respiratory failure 2. Leukopenia 3. Normocytic anemia #Acute hypoxic hypercapnic respiratory failure: Patient presented with severe respiratory acidosis and hypercarbia. It seems like this may have been secondary to opioid/benzodiazepine overdose. The patient is on chronic pain meds. He was on BiPAP overnight and his ABG has markedly improved. -Azithromycin -Methylprednisone 40 mg twice a day -Guaifenesin -Consider pain consult #Leukopenia: No overt signs of infection at this time. -Continue to monitor #Normocytic anemia: Mild and asymptomatic. Iron was low in 2013. -Start ferrous sulfate #Chronic medical problems: -Continue home multivitamin, lisinopril, aspirin, oxycodone -Hold oral hypoglycemics. -Insulin sliding scale DVT prophylaxis with enoxaparin Heart healthy diet Full code Problem List: 1. Hypercapnic respiratory failure Pain Ratin Pain Location: back Pain Goal: Remain pain free Pain Plan: see a/p Tomorrow's Labs & Rationales: cbc Carl Raymundo 04/24/17 1057: Attending MD Review Statement Attending Statement Attending MD Statement: examined this patient, discuss w/resident/PA/CRAB BACKER, agreed w/resident/PA/CRAB BACKER, discussed with family, reviewed EMR data (avail), discussed with nursing, discussed with case mgmt, reviewed images, amended to note
[2017-04-24 23:09] VITALS: BP 158/82
[2017-04-25 07:00] VITALS: BP 170/90
[2017-04-25 08:21] LABS: ABSOLUTE BASOPHIL COUNT 0 /CUMM (0.0-0.2); ABSOLUTE EOSINOPHIL COUNT 0 /CUMM (0.0-0.7); ABSOLUTE GRANULOCYTE CT 6.6 /CUMM (1.4-6.5); ABSOLUTE LYMPH COUNT 1.1 /CUMM (1.2-3.4); EOSINOPHIL % 0 % (0-5); RED BLOOD CELL CT 5.07 /CUMM (4.70-6.10)
[2017-04-25 08:35] LABS: ABSOLUTE MONOCYTE COUNT 0.6 /CUMM (0.10-0.60); BASOPHIL % 0.1 % (0.0-2.0); GRANULOCYTE % 80.1 % (42.2-75.2); HEMATOCRIT 41.2 % (42-52); MEAN CORPUSCULAR HGB 26.2 PG (27.0-31.0); MEAN CORPUSCULAR HGB CONC 32.3 G/DL (33.0-37.0); MEAN CORPUSCULAR VOLUME 81.3 FL (80.0-94.0); MEAN PLATELET VOLUME 9.3 FL (7.4-10.4); PLATELET COUNT 258 /CUMM (130-400); RBC DISTRIBUTION WIDTH 22.6 % (11.5-14.5)
[2017-04-25 08:38] LABS: WHITE BLOOD CELL COUNT 8.3 /CUMM (4.8-10.8)
--- NOTE | 2017-04-25 08:53 | PN- Housestaff ---
Derek Sarkar MD,[facility] 04/25/17 0852: Subjective Follow-up For: respiratory failure Tele-Events Since Last Visit: Sr 61-76 Vta 4beat Subjective: Patient visited today, was lying in bed comfortably in no acute distress, was alert and oriented. Reported improved shortness of breathing, cough, sputum. He also reported pain in the left side of the chest which was chronic and was associated with chronic rib fracture. No fever or chills, no chest pain, no other events, no swelling Patient insisted to get xanax, explained complete patients related to his medication including respiratory failure, he insisted that he is so anxious and he needs his home medication of Xanax 0.25 mg of Xanax was ordered Review of Systems Constitutional: Reports: see HPI. Objective Last 24 Hrs of Vital Signs/I&O Vital Signs Date Time Temp Pulse Resp B/P B/P Pulse O2 O2 Flow FiO2 Mean Ox Delivery Rate 04/25 1911 96 Nasal 1.0L Cannula 04/25 1400 98.3 88 20 148/90 96 Nasal Cannula 04/25 0926 98 Nasal 2.0L Cannula 04/25 0800 Nasal 3.0L Cannula 04/25 0800 73 170/90 04/25 0800 73 170/90 04/25 0700 98.1 73 22 170/90 98 04/25 0000 Nasal 3.0L Cannula 04/24 2309 98.0 81 20 158/82 96 Nasal Cannula Intake & Output 04/25 1600 04/25 0800 04/25 0000 Intake Total 600 110 120 Output Total 450 450 Balance 600 -340 -330 Intake, IV 110 Intake, Oral 600 120 Output, Urine 450 450 Physical Exam General Appearance: Alert, Oriented X3, Cooperative, No Acute Distress HEENT: Atraumatic, EOMI, Mucous Membr. moist/pink Cardiovascular: Regular Rate, Normal S1, Normal S2 Lungs: midl ronchi and wheezing bilaterally Abdomen: Soft, No Tenderness Neurological: Normal Speech Extremities: No Edema Current Medications: Current Medications Sig/Ernestina Start time Last Medication Dose Route Stop Time Status Admin Al Hydroxide/Mg 30 ML .STK-MED ONE 04/24 2044 DC Hydroxide PO 04/24 2045 Al Hydroxide/Mg 30 ML ONCE ONE 04/24 2029 DC 04/24 Hydroxide PO 04/24 Albuterol Sulfate 3 ML BID 04/24 1204 AC 04/25 INH 1910 Alprazolam 0.25 MG ONCE ONE 04/25 1545 DC 04/25 PO 04/25 1546 1636 Amlodipine Besylate 10 MG DAILY 04/24 1000 AC 04/25 PO 0800 Aspirin Buffered 81 MG DAILY 04/24 1000 AC 04/25 PO 0800 Azithromycin 500 MG DAILY@0000 04/25 0000 AC 04/25 Dextrose/Water 250 ML IV 0035 Enoxaparin Sodium 40 MG DAILY 04/24 1000 AC 04/25 SC 0758 Ferrous Sulfate 325 MG BID 04/24 1155 AC 04/25 PO 0759 Guaifenesin 600 MG Q12 04/24 1000 AC 04/25 PO 0800 Insulin Aspart 0 TIDAC 04/24 0800 AC 04/25 SC 1640 Lisinopril 20 MG DAILY 04/24 1000 AC 04/25 PO 0800 Melatonin 5 MG ONCE ONE 04/24 2030 DC 04/24 PO 04/24 Methylprednisolone 40 MG BID 04/24 1000 AC 04/25 IV 0801 Multivitamins 1 TAB DAILY 04/24 1000 AC 04/25 Therapeutic PO 0800 Oxycodone HCl 5 MG Q8 PRN 04/23 2345 AC 04/25 PO 1636 Last 24 Hrs of Lab/Arnie Results Last 24 Hrs of Labs/Mics: Laboratory Tests 04/25/17 0655: CBC w Diff NO MAN DIFF REQ, RBC 5.07, MCV 81.3, MCH 26.2 L, RDW 22.6 H, MPV 9.3, Gran % 80.1 H, Lymphocytes % 13.0 L, Monocytes % 6.8, Eosinophils % 0, Basophils % 0.1, Absolute Granulocytes 6.6 H, Absolute Lymphocytes 1.1 L, Absolute Monocytes 0.6, Absolute Eosinophils 0, Absolute Basophils 0, PUBS MCHC 32.3 L Assessment/Plan Assessment: Mr. Pollock is a 67 yo m with a PMH significant for NIDDM, Hepatitis C, Asthma, BCC on scalp, HTN epidural and paraspinal abscess s/p decompression, lumbar laminectomy, MSSA bacteremia s/p L shoulder arthroscopic debridement, synovectomy, who presents to the ED with worsening SOB for 1 day admitted to telemetry for Acute hypoxic hypercapnic respiratory failure. Problem list: 1. Acute hypoxic hypercapnic respiratory failure 2. Leukopenia 3. Normocytic anemia #Acute hypoxic hypercapnic respiratory failure: Patient presented with severe respiratory acidosis and hypercarbia. It seems like this may have been secondary to opioid/benzodiazepine overdose. The patient is on chronic pain meds. He was on BiPAP overnight and his ABG has markedly improved. - DC tele - patient can be transferred to floor -Azithromycin -Methylprednisone 40 mg twice a day -Guaifenesin -Consider pain consult #Leukopenia: No overt signs of infection at this time. -Continue to monitor #Normocytic anemia: Mild and asymptomatic. Iron was low in 2013. -Start ferrous sulfate #Chronic medical problems: -Continue home multivitamin, lisinopril, aspirin, oxycodone -Hold oral hypoglycemics. -Insulin sliding scale DVT prophylaxis with enoxaparin Heart healthy diet Full code Problem List: 1. Hypercapnic respiratory failure Pain Ratin (more anxiety) Pain Location: None, right chest wall with touch Pain Goal: Pain 4 or less Pain Plan: Contue current meds Tomorrow's Labs & Rationales: CBC BEP Carl Raymundo 04/25/17 1223: Attending MD Review Statement Attending Statement Attending MD Statement: examined this patient, discuss w/resident/PA/GAME ADVISOR, agreed w/resident/PA/GAME ADVISOR, discussed with family, reviewed EMR data (avail), discussed with nursing, discussed with case mgmt, reviewed images, amended to note Attending Assessment/Plan: Patient seen/examined bedside. Patient denies any new complaints. He is requesting his pain meds and benzodiazipines. Patient admitted to telemetry for continous pulse oximetry in setting of Acute hypercapnic respiratory failure : Multifactorial asthma/?COPD exacerbation, obesity hypoventilation, ADE, polypharmacy and drug overdose. Patient is off bipap now. serial cardiac enzymes negative. taper steroids, IV azithromycin, TRC nebulization with albuterol and ipratropium scheduled and when necessary, Pulmonology consult, Avioid pain meds and benzodiazipnes in high doses. Resume home meds except opiods and BZDs and If needed titrate up slowly. Discontinue telemetry and transfer to gen/med.
[2017-04-25 14:00] VITALS: BP 148/90
[2017-04-25 23:11] VITALS: BP 160/82
[2017-04-26 06:00] VITALS: BP 182/92
--- NOTE | 2017-04-26 07:21 | PN- Housestaff ---
See Addendum Subjective Follow-up For: respiratory failure Tele-Events Since Last Visit: Not on tele Subjective: No overnight events. Compalining of chronic L shoulder and rib pain, asking for his pain meds to be restarted. No CP or SOB. He didn't sleep well. Review of Systems Constitutional: Reports: no symptoms. EENTM: Reports: no symptoms. Cardiovascular: Reports: no symptoms. Respiratory: Reports: no symptoms. Gastrointestinal: Reports: no symptoms. Genitourinary: Reports: no symptoms. Musculoskeletal: Reports: see HPI. Skin: Reports: no symptoms. Neurological/Psychological: Reports: no symptoms. Hematologic/Endocrine: Reports: no symptoms. Immunologic/Allergic: Reports: no symptoms. Objective Last 24 Hrs of Vital Signs/I&O Vital Signs Date Time Temp Pulse Resp B/P B/P Pulse O2 O2 Flow FiO2 Mean Ox Delivery Rate 04/26 0000 Nasal 3.0L Cannula 04/25 2311 97.9 102 20 160/82 97 04/25 1911 96 Nasal 1.0L Cannula 04/25 1400 98.3 88 20 148/90 96 Nasal Cannula 04/25 0926 98 Nasal 2.0L Cannula 04/25 0800 Nasal 3.0L Cannula 04/25 0800 73 170/90 04/25 0800 73 170/90 Intake & Output 04/26 0800 04/26 0000 04/25 1600 Intake Total 600 Output Total Balance 600 Intake, Oral 600 Physical Exam General Appearance: Alert, Oriented X3, Cooperative, No Acute Distress Cardiovascular: Regular Rate, Normal S1, Normal S2 Lungs: mild rhonci Abdomen: Normal Bowel Sounds, Soft, No Tenderness Extremities: No Edema Current Medications: Current Medications Sig/Ernestina Start time Last Medication Dose Route Stop Time Status Admin Albuterol Sulfate 3 ML BID 04/24 1204 AC 04/25 INH 1910 Alprazolam 0.25 MG ONCE ONE 04/25 1545 DC 04/25 PO 04/25 1546 1636 Amlodipine Besylate 10 MG DAILY 04/24 1000 AC 04/25 PO 0800 Aspirin Buffered 81 MG DAILY 04/24 1000 AC 04/25 PO 0800 Azithromycin 500 MG DAILY@0000 04/25 0000 AC 04/26 Dextrose/Water 250 ML IV 0002 Enoxaparin Sodium 40 MG DAILY 04/24 1000 AC 04/25 SC 0758 Ferrous Sulfate 325 MG BID 04/24 1155 AC 04/25 PO 2028 Guaifenesin 600 MG Q12 04/24 1000 AC 04/25 PO 2028 Insulin Aspart 0 TIDAC 04/24 0800 AC 04/25 SC 1640 Lisinopril 20 MG DAILY 04/24 1000 AC 04/25 PO 08 Melatonin 5 MG ONCE ONE 04/25 2044 DC 04/25 PO 04/25 Methylprednisolone 40 MG BID 04/24 1000 AC 04/25 IV 2028 Multivitamins 1 TAB DAILY 04/24 1000 AC 04/25 Therapeutic PO 08 Oxycodone HCl 5 MG Q8 PRN 04/23 2345 AC 04/26 PO 0010 Assessment/Plan Assessment: Mr. Pollock is a 67 yo m with a PMH significant for NIDDM, Hepatitis C, Asthma, BCC on scalp, HTN epidural and paraspinal abscess s/p decompression, lumbar laminectomy, MSSA bacteremia s/p L shoulder arthroscopic debridement, synovectomy, who is here with acute hypoxic hypercapnic respiratory failure secondary to medication overdose. He was initially admitted to telemetry and is now stable for transfer to [facility]. Problem list: 1. Acute hypoxic hypercapnic respiratory failure 2. Accidental medication overdose 3. Normocytic anemia #Acute hypoxic hypercapnic respiratory failure: Patient presented with severe respiratory acidosis and hypercarbia. It seems like this may have been secondary to opioid/benzodiazepine overdose. The patient is on chronic pain meds. He was initially on BiPAP and his ABG markedly improved. He is now on 1.5 L nasal cannula. -Azithromycin -Methylprednisone 40 mg QD - tapering -Guaifenesin -Consider pain consult -Appreciate pulmonology recommendations: Pulmonology consult was placed on April 24. -Restarted alprazolam 0.5 mg twice a day to prevent withdrawal. May want to speak to Juana Trimble ([facility]), who seems to have been prescribing him benzodiazepines. #Leukopenia: No overt signs of infection at this time. Resolved. -Continue to monitor #Normocytic anemia: Mild and asymptomatic. Iron was low in 2013. -ferrous sulfate #Chronic medical problems: -Continue home multivitamin, lisinopril, aspirin, oxycodone, amlodipine -Hold oral hypoglycemics. -Insulin sliding scale DVT prophylaxis with enoxaparin Heart healthy diet Full code Problem List: 1. Hypercapnic respiratory failure Pain Ratin Pain Location: shoulder Pain Goal: Remain pain free Pain Plan: see a/p Tomorrow's Labs & Rationales: none
[2017-04-26 08:22] LABS: ABSOLUTE BASOPHIL COUNT 0 /CUMM (0.0-0.2); ABSOLUTE EOSINOPHIL COUNT 0 /CUMM (0.0-0.7); ABSOLUTE GRANULOCYTE CT 7.5 /CUMM (1.4-6.5); ABSOLUTE LYMPH COUNT 1.1 /CUMM (1.2-3.4); ABSOLUTE MONOCYTE COUNT 0.7 /CUMM (0.10-0.60); BASOPHIL % 0 % (0.0-2.0); EOSINOPHIL % 0 % (0-5); GRANULOCYTE % 80.7 % (42.2-75.2); HEMATOCRIT 41.5 % (42-52); MEAN CORPUSCULAR HGB 26.1 PG (27.0-31.0); MEAN CORPUSCULAR HGB CONC 32.5 G/DL (33.0-37.0); MEAN CORPUSCULAR VOLUME 80.1 FL (80.0-94.0); MEAN PLATELET VOLUME 9.1 FL (7.4-10.4); PLATELET COUNT 261 /CUMM (130-400); RBC DISTRIBUTION WIDTH 22.4 % (11.5-14.5); RED BLOOD CELL CT 5.19 /CUMM (4.70-6.10); WHITE BLOOD CELL COUNT 9.3 /CUMM (4.8-10.8)
[2017-04-26 12:00] VITALS: BP 138/80
[2017-04-26 14:23] VITALS: BP 160/90
[2017-04-26 23:37] VITALS: BP 140/70
[2017-04-27 06:18] VITALS: BP 142/80
--- NOTE | 2017-04-27 07:50 | PN- Housestaff ---
Jesus DOLAN,[facility] 04/27/17 0749: Subjective Follow-up For: resp failure possibly due to narcotics copd aspiration pneumonitis Subjective: Patient states he is feeling better today. He is requesting to be discharged. He understands that his pain medications may have caused his respiratory failure. He understands that he should follow-up with his pain employment training specialist. Still complains of left shoulder pain and diffuse body pain. Review of Systems Constitutional: Reports: no symptoms. Cardiovascular: Reports: no symptoms. Respiratory: Reports: no symptoms. Gastrointestinal: Reports: no symptoms. Genitourinary: Reports: no symptoms. Musculoskeletal: Reports: joint pain. Skin: Reports: no symptoms. Objective Last 24 Hrs of Vital Signs/I&O Vital Signs Date Time Temp Pulse Resp B/P B/P Pulse O2 O2 Flow FiO2 Mean Ox Delivery Rate 04/27 1058 96 Room Air 04/27 0810 148/80 04/27 0810 148/80 04/27 0800 Room Air 04/27 0618 98.0 77 20 142/80 96 Nasal Cannula 04/26 2337 97.9 60 20 140/70 99 Room Air 04/26 2000 97 Nasal 0.5L Cannula Intake & Output 04/27 1600 04/27 0800 04/27 0000 Intake Total 250 250 Output Total 300 Balance -50 250 Intake, IV 10 10 Intake, Oral 240 240 Number 1 Bowel Movements Output, Urine 300 Physical Exam General Appearance: Alert, Oriented X3, Cooperative, No Acute Distress Cardiovascular: Regular Rate, Normal S1, Normal S2 Lungs: mild L rhonchi Abdomen: Normal Bowel Sounds, Soft, No Tenderness Extremities: tender to palpation of L shoulder Vascular: 2+ radial pulses Current Medications: Current Medications Sig/Ernestina Start time Last Medication Dose Route Stop Time Status Admin Albuterol Sulfate 3 ML BID 04/24 1204 DCD 04/27 INH 1053 Alprazolam 0.5 MG BID 04/26 1002 DCD 04/27 PO 05/03 1001 0810 Amlodipine Besylate 10 MG DAILY 04/24 1000 DCD 04/27 PO 0810 Aspirin Buffered 81 MG DAILY 04/24 1000 DCD 04/27 PO 0810 Azithromycin 250 MG DAILY 04/26 1015 DCD 04/27 PO 0811 Enoxaparin Sodium 40 MG DAILY 04/24 1000 DCD 04/27 SC 0811 Ferrous Sulfate 325 MG BID 01/20 1155 DCD 04/27 PO 0810 Gabapentin 300 MG TID 04/26 1611 DCD 04/27 PO 0810 Guaifenesin 600 MG Q12 04/24 1000 DCD 04/27 PO 0810 Insulin Aspart 0 TIDAC 04/24 0800 DCD 04/27 SC 0759 Lisinopril 20 MG DAILY 04/24 1000 DCD 04/27 PO 0810 Melatonin 5 MG ONCE ONE 04/27 0015 DC 04/27 PO 04/27 0016 0010 Melatonin 5 MG .STK-MED ONE 04/26 2342 DC PO 04/26 2343 Methylprednisolone 40 MG DAILY AC 04/27 0700 DCD 04/27 IV 0515 Multivitamins 1 TAB DAILY 04/24 1000 DCD 04/27 Therapeutic PO 0810 Oxycodone HCl 5 MG Q8 PRN 04/23 2345 DCD 04/27 PO 1227 Last 24 Hrs of Lab/Arnie Results Last 24 Hrs of Labs/Mics: Microbiology 04/26 174 URINE ROUT: Legionella Antigen - COMP 04/26 1744 URINE ROUT: Streptococcus pneumoniae Antigen (M - COMP Assessment/Plan Assessment: Mr. Pollock is a 67 yo m with a PMH significant for NIDDM, Hepatitis C, Asthma, BCC on scalp, HTN epidural and paraspinal abscess s/p decompression, lumbar laminectomy, MSSA bacteremia s/p L shoulder arthroscopic debridement, synovectomy, who is here with acute hypoxic hypercapnic respiratory failure secondary to medication overdose. He was initially admitted to telemetry and is now stable for transfer to [facility]. Problem list: 1. Acute hypoxic hypercapnic respiratory failure 2. Accidental medication overdose 3. Normocytic anemia #Multifactorial acute hypoxic hypercapnic respiratory failure but most likely accidental narcotic overdose: Patient presented with severe respiratory acidosis and hypercarbia. It seems like this may have been secondary to opioid/benzodiazepine overdose in addition to copd and possible aspiration pneumonitis. The patient is on chronic pain meds. He was initially on BiPAP and his ABG markedly improved. He is now on current on room air. Completed 5 days of azithromycin -Patient will need nebulizer machine for duonebs prn at home -switch from IV steroids to discharge with po prednisone taper -Guaifenesin -Restarted alprazolam 0.5 mg twice a day to prevent withdrawal. -reduced oxycodone from 10mg TID to 5mg TID for dsicharge #Leukopenia - resolved One time lab of WBC 3.0 No overt signs of infection at this time. -possibly due to lab variation error. continue to monitor #Normocytic anemia: Mild and asymptomatic. Iron was low in 2013. H/H stable around -cont ferrous sulfate #Chronic medical problems: -Continue home multivitamin, lisinopril, aspirin, oxycodone, amlodipine -Hold oral hypoglycemics. -Insulin sliding scale DVT prophylaxis with enoxaparin Heart healthy diet Full code Problem List: 1. Hypercapnic respiratory failure Pain Ratin Pain Location: L shoudler Pain Goal: Pain 4 or less Pain Plan: pain pathway Tomorrow's Labs & Rationales: none Carl Raymundo 04/27/17 1148: Attending MD Review Statement Attending Statement Attending MD Statement: examined this patient, discuss w/resident/PA/GLYCERIN OPERATOR, agreed w/resident/PA/GLYCERIN OPERATOR, discussed with family, reviewed EMR data (avail), discussed with nursing, discussed with case mgmt, reviewed images, amended to note Attending Assessment/Plan: Taper steroids to PO. He had recent rib fracture which required increased pain meds. Patient admitted here 2/2 acute respiratory failure requiring bipap multifactorial possible COPD exacerbation and opiod overdose. Pt was on benzo and opiates at home. Advised benzo on lower dose of 0.5mg bid and oxycodone on lower dose. d/w pt the issues with being on higher dose of benzo and narcotics affecting his respiratory system especially with h/o smoking. Patient verbalsies the understanding. He wants to go home. He will follow up with PCP and pain management as outpatient.
[2017-04-27 08:10] VITALS: BP 148/80
[2017-04-27] MEDS ORDERED: PREDNISONE10 M2 PO ×2 (11:16→12:06)
[2017-04-27] MEDS ORDERED: GUAIFENESIN ER600 MG PO (11:18)
--- NOTE | 2017-04-27 11:21 | Patient Discharge Instructions ---
Discharge Instructions General Discharge Information Special Instructions: Please follow up with your pcp in 1-2 weeks. Please follow up with your marine painter as soon as possible. Please take your medications as perscribed. Please return to the ED for any worsening symptoms or new concerns. Acute Coronary Syndrome Inclusion Criteria At DC or during hospital stay patient has or had the following: Discharge Core Measures Meds if any: Prescribed or Continued at Discharge Meds if any: NOT Prescribed or Continued at Discharge Congestive Heart Failure Inclusion Criteria At DC or during hospital stay patient has or had the following: Discharge Core Measures Meds if any: Prescribed or Continued at Discharge Meds if any: NOT Prescribed or Continued at Discharge Cerebrovascular accident Inclusion Criteria At DC or during hospital stay patient has or had the following: CVA/TIA Diagnosis No Discharge Core Measures Meds if any: Prescribed or Continued at Discharge Meds if any: NOT Prescribed or Continued at Discharge Venous thromboembolism Discharge Core Measures - Per Current guidelines, there needs to be overlap - treatment for the first 5 days of Warfarin therapy. - If discharged on Warfarin prior to 5 days of - overlap therapy, the patient will need to be - assessed for post discharge needs including - *Post discharge parental anticoagulation - *Warfarin and/or parental anticoagulation education - *Follow up date to check INR post discharge Meds if any: Prescribed or Continued at Discharge Note: Overlap Therapy is Warfarin and Anticoagulant Meds if any: NOT Prescribed or Continued at Discharge
[2017-04-27] MEDS ORDERED: OXYCODONE HCL5 M1 PO (11:54)
== END 2017-04-27 12:56 | DRG 917 ==
LOC: ERH 14:06 → 1NO 22:07 → ERHI 22:07 → ENRESERV 04-24 00:03 → 1NO 04-24 01:16 → ENTRNSPT 04-26 10:08 → EDTRNSPTSTS 04-26 11:00 → EDTRNSPT 04-26 11:00 → CMPTRNSPT 04-26 11:32 → 2NA 04-26 11:38 → ENPENDDIS 04-27 12:15 → 2NA 04-27 12:56
PROVIDERS: Internal Medicine; Physician Assistant; Radiology Vascular & Interventional Radiology
DX: T42.4X1A Poisoning by benzodiazepines, accidental (unintentional), initial encounter (principal); J96.02 Acute respiratory failure with hypercapnia; E87.2 Acidosis; E66.2 Morbid (severe) obesity with alveolar hypoventilation; J45.901 Unspecified asthma with (acute) exacerbation; T40.2X1A Poisoning by other opioids, accidental (unintentional), initial encounter; E11.9 Type 2 diabetes mellitus without complications; Z79.84 Long term (current) use of oral hypoglycemic drugs; G89.29 Other chronic pain; B18.2 Chronic viral hepatitis C; I10 Essential (primary) hypertension; Z79.82 Long term (current) use of aspirin; F41.9 Anxiety disorder, unspecified; E78.5 Hyperlipidemia, unspecified; F32.9 Major depressive disorder, single episode, unspecified; D64.9 Anemia, unspecified
CPT/HCPCS: 1NP; 2NASP; ERO; 36415; 71046; 80307; 81001; 82436; 87070; 87449; 87450; 87804; 87804-59; 93005; 93010; 94644; 96374; 99291; G0480; J0456; J1644; J1650; J2920; J2930; J7040; J7060

== ENCOUNTER 2017-07-11 07:38 | Emergency (ER) | payer OTHER ==
[~2017-07-11] VITALS: Ht 175.3 cm; Wt 103.0 kg
[~2017-07-11 07:38] MED LIST changes: +CYCLOBENZAPRINE10 M1 PO; +GUAIFENESIN ER600 MG PO; +PREDNISONE10 M2 PO
--- NOTE | 2017-07-11 07:59 | ED NECK/BACK PAIN COMPLAINT ---
History of Present Illness General Chief Complaint: Low Back Pain/Injury Stated Complaint: BACK PAIN Source: patient, old records Exam Limitations: no limitations Vital Signs & Intake/Output Vital Signs & Intake/Output Vital Signs Date Time Temp Pulse Resp B/P B/P Pulse O2 O2 Flow FiO2 Mean Ox Delivery Rate 07/11 1123 97.8 80 20 144/74 99 Room Air 07/11 0935 75 20 156/70 98 Room Air 07/11 0743 96.0 87 22 166/73 98 Room Air Room Air Allergies Coded Allergies: codeine (Intermediate, STOMACH CRAMPING 09/23/16) morphine (From MS Contin) (Intermediate, PROFUSE SWEATING 09/23/16) Reconcile Medications Alprazolam 1 MG TABLET 1 TAB PO TID PRN ANXIETY (Reported) Amlodipine Besylate 10 MG TABLET 1 TAB PO DAILY HTN (Reported) Aspirin (Ecotrin*) 81 MG TABLET.DR 1 TAB PO DAILY HEART/BLOOD (Reported) Cyclobenzaprine HCl 10 MG TABLET 1 TAB PO Q8P PAIN OR SPASM Doxylamine Succinate (Unisom) (Unknown Strength) TABLET 1 TAB PO QPM SLEEP ( Reported) Fluticasone Propionate 50 MCG/ACTUATION SPRAY.SUSP 2 SPRAY NASB DAILY ALLERGIES (Reported) Gabapentin 300 MG CAPSULE 1 CAP PO TID PAIN (Reported) Ibuprofen 600 MG TABLET 1 TAB PO Q6PRN PRN pain with food Lisinopril 20 MG TABLET 1 TAB PO DAILY HEART (Reported) Metformin HCl 500 MG TABLET 1 TAB PO DAILY DIABETES (Reported) Multivitamin (Daily Multiple Vitamin) 1 EACH TABLET 1 TAB PO DAILY VITAMIN SUPPORT (Reported) Oxycodone HCl 5 MG TABLET 1 TAB PO Q8 PRN PAIN SCALE 1-3 (MILD) Oxycodone HCl/Acetaminophen (Percocet 5-325 MG Tablet) 5 MG-325 MG TABLET 1-2 TAB PO Q6P PRN PAIN Prednisone 10 MG TABLET 1 TAB PO DAILY COPD/BRONCHITIS DATE TABS 04/28- 6 04/30- 5 05/02- 4 05/04-05/06 3 2/2-3 2 05/09-5 1 Triage Note: TRIAGE: 67 Y/O MALE PRESENTS C/O 9/10 BILATERAL LEG AND SPINE PAIN. HISTORY OF ORTHO SURGERY. Triage Nurses Notes Reviewed? yes HPI: Patient presents with back pain radiating down his left leg. Patient has a history of chronic back pain. Patient states his daughter usually gives out his medications but she went on vacation so he has been without his pain medication for the past 2 days. Patient states he feels like his left leg is, give out from him however he has not fallen. The pain is 10 out of 10 and increases with movement. No incontinence of bowel or bladder. There are no fevers or chills. Past History Travel History Traveled to [place] past 21 day No Medical History Any Pertinent Medical History? 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 No Review of Systems Review of Systems Constitutional: Reports: no symptoms. Eyes: Reports: no symptoms. Ears, Nose, Throat, Mouth: Reports: no symptoms. Respiratory: Reports: no symptoms. Cardiovascular: Reports: no symptoms. Gastrointestinal/Abdominal: Reports: no symptoms. Musculoskeletal: Reports: see HPI, back pain. Skin: Reports: no symptoms. Neurological/Psychological: Reports: no symptoms. All Other Systems: Reviewed and Negative Physical Exam Physical Exam General Appearance: well developed/nourished, mild distress Head: atraumatic Eyes: Bilateral: PERRL, EOMI. Ears, Nose, Throat, Mouth: hearing grossly normal, moist mucous membrane Neck: normal inspection, supple, full range of motion Respiratory: normal breath sounds, chest non-tender, no respiratory distress, lungs clear Cardiovascular: regular rate/rhythm, normal peripheral pulses Gastrointestinal: normal bowel sounds, soft, non-tender Back: normal inspection, DIFFUSE TENDERNESS Extremities: normal range of motion Straight Leg Raising: Right: Negative. Left: Negative. Neurologic/Psych: awake, alert, oriented x 3, normal mood/affect Skin: intact, normal color, warm/dry Core Measures CVA/TIA Diagnosis: No Progress Differential Diagnosis: ACUTE EXACERBATION OF CHRONIC PAIN Plan of Care: Orders Procedure Date/time Status Regular Diet 07/11 L Active Departure Departure Disposition: HOME OR SELF CARE Condition: Stable Clinical Impression Primary Impression: Acute exacerbation of chronic low back pain Referrals: Ursula Garner MD Additional Instructions: FOLLOW UP WITH PAIN MANAGEMENT RETURN NEEDED Departure Forms: Customer Survey General Discharge Information Prescriptions: Current Visit Scripts Oxycodone HCl/Acetaminophen (Percocet 5-325 MG Tablet) 1-2 TAB PO Q6P PRN PAIN #16 TAB
[2017-07-11] MEDS ORDERED: PERCOCET 5-3251 EACH PO (10:57)
[2017-07-11 11:23] VITALS: BP 144/74
== END 2017-07-11 11:38 ==
LOC: ERH 07:38
DX: M54.5 Low back pain (principal)
CPT/HCPCS: 96374

== ENCOUNTER 2017-07-26 13:29 | Emergency (ER) | payer OTHER ==
[~2017-07-26] VITALS: Ht 175.3 cm; Wt 103.4 kg
[2017-07-26 17:26] VITALS: BP 156/90
--- NOTE | 2017-07-26 18:01 | ED NECK/BACK PAIN COMPLAINT ---
History of Present Illness General Chief Complaint: Lower Extremity Problems Stated Complaint: CAN'T STAND ON LEFT LEG, SEEN FOR SAME Source: patient, old records Exam Limitations: no limitations Vital Signs & Intake/Output Vital Signs & Intake/Output Vital Signs Date Time Temp Pulse Resp B/P B/P Pulse O2 O2 Flow FiO2 Mean Ox Delivery Rate 07/26 1726 98.0 94 18 156/90 97 Room Air Room Air 07/26 1354 98.2 97 18 148/95 96 Room Air Allergies Coded Allergies: codeine (Intermediate, STOMACH CRAMPING 09/23/16) morphine (From MS Contin) (Intermediate, PROFUSE SWEATING 09/23/16) Reconcile Medications Alprazolam 1 MG TABLET 1 TAB PO TID PRN ANXIETY (Reported) Amlodipine Besylate 10 MG TABLET 1 TAB PO DAILY HTN (Reported) Aspirin (Ecotrin*) 81 MG TABLET.DR 1 TAB PO DAILY HEART/BLOOD (Reported) Doxylamine Succinate (Unisom) (Unknown Strength) TABLET 1 TAB PO QPM SLEEP ( Reported) Fluticasone Propionate 50 MCG/ACTUATION SPRAY.SUSP 2 SPRAY NASB DAILY ALLERGIES (Reported) Gabapentin 300 MG CAPSULE 1 CAP PO TID PAIN (Reported) Ibuprofen 600 MG TABLET 1 TAB PO Q6PRN PRN pain with food Lisinopril 20 MG TABLET 1 TAB PO DAILY HEART (Reported) Metformin HCl 500 MG TABLET 1 TAB PO DAILY DIABETES (Reported) Multivitamin (Daily Multiple Vitamin) 1 EACH TABLET 1 TAB PO DAILY VITAMIN SUPPORT (Reported) Oxycodone HCl 10 MG TABLET 1 TAB PO 4 TIMES/DAY PAIN (Reported) Oxycodone HCl/Acetaminophen (Percocet 5-325 MG Tablet) 5 MG-325 MG TABLET 1 TAB PO Q6HR PRN PAIN Oxycodone HCl/Acetaminophen (Percocet 5-325 MG Tablet) 5 MG-325 MG TABLET 1 TAB PO BID PRN pain Triage Note: 67 Y/O MALE C/O CONTINUED/WORSENING LOW BACK PAIN X 3 DAYS. STATES HE HAS BEEN EVAL'D IN ED MULTIPLE TIMES FOR SAME; RELIES ON HIS SON TO BRING HIM HIS PAIN MEDICATIONS (OXYCODONE PER PT, IN PAIN MANAGEMENT) AND HIS SON HAS NOT COME IN 2 DAYS. PT DENIES RECENT INJURY OR TRAUMA. STATES PAIN IN LOW BACK RADIATING DOWN L LEG. IN W/C FOR COMFORT Triage Nurses Notes Reviewed? yes Onset: Gradual Duration: week(s): Timing: recent history Quality/Severity: severe Location: lumbar spine, paraspinous muscles Radiation: upper legs HPI: 67YO male with history of chronic low back pain presents emergency department complaining of worsening low back pain for the past 3 days. Patient describes pain as low back with radiation down left leg. Patient is seen in pain management and is on oxycodone for his pain. Patient states that for the past 2 days his son has not been able to give him the medication. His medication is kept in a lock box which only the patient's son has access to. Patient's next scheduled appointment with pain management is not until week. Patient requesting something to help take away the pain, it is described as severe. Patient had no injury or inciting event prior to onset of pain. He denies urinary/bowel incontinence, saddle anesthesia, fevers, vomiting. Past History Travel History Traveled to [place] past 21 day No Medical History Any Pertinent Medical History? 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 No Review of Systems Review of Systems Constitutional: Reports: no symptoms. Eyes: Reports: no symptoms. Ears, Nose, Throat, Mouth: Reports: no symptoms. Respiratory: Reports: no symptoms. Cardiovascular: Reports: no symptoms. Gastrointestinal/Abdominal: Reports: no symptoms. Musculoskeletal: Reports: see HPI. Skin: Reports: no symptoms. Neurological/Psychological: Reports: see HPI. All Other Systems: Reviewed and Negative Physical Exam Physical Exam General Appearance: well developed/nourished, no apparent distress, alert, awake Head: atraumatic, normal appearance Eyes: Bilateral: normal appearance. Ears, Nose, Throat, Mouth: hearing grossly normal Neck: normal inspection, supple, full range of motion Respiratory: no respiratory distress Back: normal inspection, normal range of motion, lumbar vertebral tenderness Extremities: normal range of motion Straight Leg Raising: Right: Pain at ____ degrees. Left: Pain at ____ degrees. Sensory: Medial Le: L4R, L4L. Top of Foot: 2: L5R, L5L. Sole of Foot: 2: SIR, ALIRIO. DTR: Patellar: 2: L4 Right, L4 Left. Neurologic/Psych: awake, alert, oriented x 3 Skin: intact, normal color, warm/dry Core Measures CVA/TIA Diagnosis: No Progress Differential Diagnosis: cauda equina syn, herniated disc, myofascial strain, sciatica, spinal cord inj, T/L spine injury Plan of Care: Patient reports he has had recent imaging including MRI. He has had no recent injury since. The patient is just requesting a pain medication to help with his back pain exacerbation. Patient reports in significant relief following shot of morphine. He is requesting pain medication to go home with, states he cannot access his current medications as they are in his lock box. I gave the patient 6 Percocet tablets to take, I encouraged him to call his son that he could gain access to his current prescriptions. He will also follow-up with pain management. Patient seen ambulatory here in the emergency room without difficulty. He is in no acute distress, nontoxic appearing, vital signs are stable. Patient agrees with the plan of care. No saddle anesthesia or incontinence to indicate cauda equina syndrome. No fevers or evidence of cellulitis, low suspicion for spinal abscess. Departure Departure Disposition: HOME OR SELF CARE Condition: Stable Clinical Impression Primary Impression: Back pain Qualifiers: Back pain location: low back pain Chronicity: acute Back pain laterality: midline Sciatica presence: with sciatica Sciatica laterality: sciatica of left side Qualified Code: M54.42 - Lumbago with sciatica, left side Referrals: Juana Trimble APRN (PCP/Family) Additional Instructions: Keep your scheduled appointment with pain management for this . Continue to take your pain medication as prescribed. Return with worsening symptoms or concerns. Please note that there might be incidental findings in your evaluation that are unrelated to the current emergency department visit. Please notify your primary care doctor about this emergency department visit in order to obtain and review all of the testing performed so that these incidental findings can be monitored as needed. If you had an x-ray performed, please understand that some fractures may not be seen on the initial set of x-rays. If your symptoms persist you might need a repeat set of x-rays to check for such a fracture. If you had a laceration evaluated, please understand that foreign bodies such as glass or wood may not be visible to the naked eye or on plain x-rays. If the wound becomes red, swollen, increasingly more painful or if there is any drainage from the wound, please have it reevaluated by a physician for the possibility of a retained foreign body. If you're unable to follow up as outlined in the discharge instructions please return to the emergency department. Thank you for choosing the [facility] Emergency Department for your care. It was a pleasure to serve you today. Departure Forms: Customer Survey General Discharge Information Prescriptions: Current Visit Scripts Oxycodone HCl/Acetaminophen (Percocet 5-325 MG Tablet) 1 TAB PO BID PRN pain #6 TAB
[2017-07-26] MEDS ORDERED: PERCOCET 5-3251 EACH PO (19:12)
== END 2017-07-26 20:35 ==
LOC: ERH 13:29
DX: M54.5 Low back pain (principal)
CPT/HCPCS: 96372

== ENCOUNTER 2017-09-02 13:38 | Emergency (ER) | payer OTHER ==
[~2017-09-02] VITALS: Ht 175.3 cm; Wt 103.4 kg
--- NOTE | 2017-09-02 16:40 | CT SCAN REPORT ---
EXAMINATION: CT ABDOMEN AND PELVIS WITHOUT CONTRAST CLINICAL INFORMATION: 67-year-old male patient with left-sided low back pain radiating to the left flank. Presumptive diagnosis: Kidney stones. COMPARISON: Abdominal CT exam on 03/31/2017. TECHNIQUE: Multidetector volumetric imaging was performed from the superior aspect of the liver through the pubic symphysis. Sagittal and coronal reformatted images were obtained on the technologist's workstation. DLP: 796 mGy-cm FINDINGS: [employer]: The sigmoid colon is redundant and capacious. There is a moderate increased burden of formed stool in the transverse colon and sigmoid. A compression screw is embedded within the proximal right femur. Severe degenerative disc disease of the lower lumbar spine. LUNG BASES: The visualized lung bases are unremarkable. LIVER, GALLBLADDER, AND BILIARY TREE: The liver is normal. There are no dilated biliary ducts. The gallbladder is moderately prominent and contains at least one faintly visualized gallstone. Note that the renal ultrasound of 01/29/2014 showed cholelithiasis. No secondary signs of cholecystitis. PANCREAS: Unremarkable. SPLEEN: Unremarkable. Tiny splenules are present near the splenic hilum. ADRENAL GLANDS: Unremarkable. KIDNEYS AND URETERS: The kidneys are normal in size, shape, and attenuation. No hydronephrosis, hydroureter, or calculi seen. Mild chronic bilateral perinephric stranding. BLADDER: Partially filled and unremarkable. GASTROINTESTINAL TRACT: The small and large bowel are unremarkable. The appendix is unremarkable. ABDOMINAL WALL: There are bilateral small fat-containing inguinal hernias. There is a small fat-containing Bochdalek hernia involving the posterior left diaphragm. Series 601, image 64. LYMPH NODES: Normal. VASCULAR: Unremarkable. PELVIC VISCERA: Unremarkable. 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 IMPRESSION: 1. No evidence of obstructive uropathy or stone formation. 2. Cholelithiasis.
--- NOTE | 2017-09-02 17:11 | ED GENERAL ADULT ---
History of Present Illness General Chief Complaint: Low Back Pain/Injury Stated Complaint: CHRONIC SPINE PAIN, SAW ORTHO, NEEDS SURG Source: patient, old records Exam Limitations: no limitations Vital Signs & Intake/Output Vital Signs & Intake/Output Vital Signs Date Time Temp Pulse Resp B/P B/P Pulse O2 O2 Flow FiO2 Mean Ox Delivery Rate 09/02 1731 98.2 84 18 145/81 99 Room Air 09/02 1346 98.2 86 18 139/81 95 Room Air Allergies Coded Allergies: codeine (Intermediate, STOMACH CRAMPING 09/23/16) morphine (From MS Contin) (Intermediate, PROFUSE SWEATING 09/23/16) Reconcile Medications Alprazolam 1 MG TABLET 1 TAB PO TID PRN ANXIETY (Reported) Amlodipine Besylate 10 MG TABLET 1 TAB PO DAILY HTN (Reported) Aspirin (Ecotrin*) 81 MG TABLET.DR 1 TAB PO DAILY HEART/BLOOD (Reported) Doxylamine Succinate (Unisom) (Unknown Strength) TABLET 1 TAB PO QPM SLEEP ( Reported) Fluticasone Propionate 50 MCG/ACTUATION SPRAY.SUSP 2 SPRAY NASB DAILY ALLERGIES (Reported) Gabapentin 300 MG CAPSULE 1 CAP PO TID PAIN (Reported) Ibuprofen 600 MG TABLET 1 TAB PO Q6PRN PRN pain with food Lisinopril 20 MG TABLET 1 TAB PO DAILY HEART (Reported) Metformin HCl 500 MG TABLET 1 TAB PO DAILY DIABETES (Reported) Multivitamin (Daily Multiple Vitamin) 1 EACH TABLET 1 TAB PO DAILY VITAMIN SUPPORT (Reported) Oxycodone HCl 10 MG TABLET 1 TAB PO 4 TIMES/DAY PAIN (Reported) Oxycodone HCl/Acetaminophen (Percocet 5-325 MG Tablet) 5 MG-325 MG TABLET 1 TAB PO Q6HR PRN PAIN Oxycodone HCl/Acetaminophen (Percocet 5-325 MG Tablet) 5 MG-325 MG TABLET 1 TAB PO BID PRN pain Triage Note: RECEIVED 67 YO MALE PRESENTS TO THE ED FOR CHRONIC LEFT THIGH AREA PAIN. PT STATES ORTHO STATES HE NEES SURGURY. Triage Nurses Notes Reviewed? yes Onset: Abrupt Duration: hour(s): (6), constant, continues in ED, getting worse Timing: recent history Injury Environment: home Severity: moderate, severe Severity Numbers: 10 No Modifying Factors: none Modifying Factors: Improves With: movement. Associated Symptoms: back pain HPI: 67-year-old male past medical history of chronic back pain, diabetes, opioid abuse presents for evaluation of worsening pain in his lower back. Patient states that he went to see his orthopedic doctor Dennis العراقي MD today. He states that after getting examined he felt like his pain had worsened. His pain is located in the left lower back and radiates into his left hip and thigh. The pain is worse than any type of movement. He is able to walk. He denies any numbness or tingling bowel or bladder dysfunction recent trauma the pain he has today for similar type of pains had in the past. He states that he was told that he needs to have surgery. He is on pain management but states he did not take any of his pain medicine or other medicines today because he overslept and had to get the doctor THIS morning. No urinary symptoms abdominal pain chest pain shortness of breath fever history of cancer or any other associated symptoms. (Anmol Borges) Past History Travel History Traveled to [place] past 21 day No Medical History Any Pertinent Medical History? 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 No (Anmol Borges) Review of Systems Review of Systems Constitutional: Reports: no symptoms. EENTM: Reports: no symptoms. Respiratory: Reports: no symptoms. Cardiovascular: Reports: no symptoms. GI: Reports: no symptoms. Genitourinary: Reports: no symptoms. Musculoskeletal: Reports: see HPI, back pain, muscle pain, muscle stiffness. Skin: Reports: no symptoms. Neurological/Psychological: Reports: no symptoms. Hematologic/Endocrine: Reports: no symptoms. Immunologic/Allergic: Reports: no symptoms. All Other Systems: Reviewed and Negative (Anmol Borges) Physical Exam Physical Exam General Appearance: well developed/nourished, no apparent distress, alert, awake Head: atraumatic, normal appearance Eyes: Bilateral: normal appearance, PERRL, EOMI. Ears, Nose, Throat: hearing grossly normal Neck: normal inspection, supple, full range of motion Respiratory: normal breath sounds, chest non-tender, no respiratory distress, lungs clear Cardiovascular: regular rate/rhythm, normal peripheral pulses Peripheral Pulses: 2+ radial (R), 2+ radial (L) Gastrointestinal: soft, non-tender Back: normal inspection, normal range of motion, decreased range of motion, left -sided lumbar paraspinous muscles tender to palpation. No midline tenderness no bruising swelling or abrasions no rashes Extremities: normal inspection, no edema, range of motion of the left hip is reduced due to pain. no bruising swelling or abrasions. There is tenderness to palpation the area of the left hip and left buttock. Straight leg raise positive on the left neurovascular supply is intact the left lower extremity. Neurologic/Psych: no motor/sensory deficits, awake, alert, oriented x 3, normal gait Reflexes: 2+: knee (R), knee (L). Skin: intact, normal color, warm/dry Core Measures ACS in differential dx? No CVA/TIA Diagnosis: No Sepsis Present: No Sepsis Focused Exam Completed? No (Anmol Borges) Progress Differential Diagnoses I considered the following diagnoses in my evaluation of the patient: [Acute on chronic low back pain, herniated disc, sciatica, muscle strain, cauda equina, osteoarthritis, malignancy, AAA, UTI, kidney stone, pyelonephritis] Plan of Care: PT seen and evaluated. He has a history of chronic back pain and feels that his pain today is similar. He states he has pain every day but it became worse today when he was at his doctor's and his left lower extremity and back were examined. Patient denies any direct trauma, numbness, tingling, bowel or bladder dysfunction, saddle paresthesias, fever. The pain he has today is similar to previous episodes. He states he did not take any this pain medicine today because he woke up late for his doctor's appointment. A CT scan of the abdomen and pelvis was obtained. Patient medicated with 6 mg IV morphine. Patient also requested his LIsinopril gabapentin and metformin. CT scan is not showing any acute findings. Patient is feeling somewhat better after morphine. He was ambulated in the emergency department has a steady gait. He was instructed to continue taking his pain management pain medications as directed. Follow-up with news content specialist and pain management. Discussed return precautions patient AGREES WITH PLAN Diagnostic Imaging: Viewed by Me: CT Scan. Discussed w/RAD: CT Scan. Radiology Impression: PATIENT: STEPHANY CUMMINS JR PRESENT AGE: 67 PATIENT ACCOUNT NO: [id number] : 52 LOCATION: [facility] ORDERING PHYSICIAN: Anmol FIGUEROA SERVICE DATE: 09/02/17 EXAM TYPE: CAT - CT ABD & PELVIS W/O IV CONTRAS EXAMINATION: CT ABDOMEN AND PELVIS WITHOUT CONTRAST CLINICAL INFORMATION: 67-year-old male patient with left-sided low back pain radiating to the left flank. Presumptive diagnosis: Kidney stones. COMPARISON: Abdominal CT exam on 03/31/2017. TECHNIQUE: Multidetector volumetric imaging was performed from the superior aspect of the liver through the pubic symphysis. Sagittal and coronal reformatted images were obtained on the technologist's workstation. DLP: 796 mGy-cm FINDINGS: Federal Mediator: The sigmoid colon is redundant and capacious. There is a moderate increased burden of formed stool in the transverse colon and sigmoid. A compression screw is embedded within the proximal right femur. Severe degenerative disc disease of the lower lumbar spine. LUNG BASES: The visualized lung bases are unremarkable. LIVER, GALLBLADDER, AND BILIARY TREE: The liver is normal. There are no dilated biliary ducts. The gallbladder is moderately prominent and contains at least one faintly visualized gallstone. Note that the renal ultrasound of 01/29/2014 showed cholelithiasis. No secondary signs of cholecystitis. PANCREAS: Unremarkable. SPLEEN: Unremarkable. Tiny splenules are present near the splenic hilum. ADRENAL GLANDS: Unremarkable. KIDNEYS AND URETERS: The kidneys are normal in size, shape , and attenuation. No hydronephrosis, hydroureter, or calculi seen. Mild chronic bilateral perinephric stranding. BLADDER: Partially filled and unremarkable. GASTROINTESTINAL TRACT: The small and large bowel are unremarkable. The appendix is unremarkable. ABDOMINAL WALL: There are bilateral small fat-containing inguinal hernias. There is a small fat-containing Bochdalek hernia involving the posterior left diaphragm. Series 601, image 64. LYMPH NODES: Normal. VASCULAR: Unremarkable. PELVIC VISCERA: Unremarkable. 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 IMPRESSION: 1. No evidence of obstructive uropathy or stone formation. 2. Cholelithiasis. DICTATED BY: Waylon Nguyen MD DATE/TIME DICTATED:09/02/171613 [employer] BUTTON PASTER:IGOR DATE/TIME TRANSCRIBED:1613 CONFIDENTIAL, DO NOT COPY WITHOUT APPROPRIATE AUTHORIZATION. < Electronically signed in Other Vendor System> SIGNED BY: Waylon Nguyen MD 09/02/17 1640 Initial ED EKG: none (Anmol Borges) Departure Departure Disposition: HOME OR SELF CARE Condition: Stable Clinical Impression Primary Impression: Chronic back pain Qualifiers: Back pain location: low back pain Back pain laterality: left Sciatica presence: with sciatica Sciatica laterality: sciatica of left side Qualified Codes: M54.42 - Lumbago with sciatica, left side; G89.29 - Other chronic pain Referrals: Juana Trimble APRN (PCP/Family) Additional Instructions: Continue to take your pain medications as directed. Follow-up with pain management as soon as possible. Monitor symptoms return with any concerns Departure Forms: Customer Survey General Discharge Information (Anmol Borges) PA/SPOOL TENDER Co-Sign Statement Statement: ED Attending supervision documentation- [X] I saw and evaluated the patient. I have also reviewed all the pertinent lab results and diagnostic results. I agree with the findings and the plan of care as documented in the PA's/SPOOL TENDER's documentation. [X] I have reviewed the ED Record and agree with the PA's/SPOOL TENDER's documentation. [] Additions or exceptions (if any) to the PAs/SPOOL TENDER's note and plan are summarized below: [] (Cheko DOLAN,Basil Porter) Critical Care Note Critical Care Note Critical Care Time: non-applicable (Anmol Borges)
[2017-09-02 17:31] VITALS: BP 145/81
== END 2017-09-02 17:54 ==
LOC: ERH 13:38
DX: M54.5 Low back pain (principal); G89.29 Other chronic pain
CPT/HCPCS: 74176; 96374

== ENCOUNTER 2017-11-10 06:20 | Emergency (ER) | payer OTHER ==
--- NOTE | 2017-11-10 07:08 | ED NECK/BACK PAIN COMPLAINT ---
See Addendum History of Present Illness General Chief Complaint: Low Back Pain/Injury Stated Complaint: BIBA BACK PAIN Source: patient Exam Limitations: no limitations Vital Signs & Intake/Output Vital Signs & Intake/Output Vital Signs Date Time Temp Pulse Resp B/P B/P Pulse O2 O2 Flow FiO2 Mean Ox Delivery Rate 11/10 0642 98.2 105 18 138/94 98 Room Air Allergies Coded Allergies: codeine (Intermediate, STOMACH CRAMPING 09/23/16) morphine (From MS Contin) (Intermediate, PROFUSE SWEATING 09/23/16) Triage Note: PT BIBA FROM HOME C/O 10/10 LOW BACK PAIN S/P MECHANICAL FALL AT HOME WHERE PT WAS ON HIS KNEES FOR 8-10HRS. -HEADSTRIKE, -LOC, -THINNERS. PT STATES HE'S SUPPOSED TO TAKE "OXY" BUT "SOMEONE STOLE IT." HX BACK SURGERY. Triage Nurses Notes Reviewed? yes HPI: 67-year-old male with a past medical history of back surgery, presented to the ED by ambulance for severe low back pain. The patient had multiple falls at home which led to him hurting his back and left shoulder. The patient reports the pain as being 10/10. Quality reported as achy and stabbing. Aggravated on movement no relieving factors. The patient uses Percocet at home which he reports someone stole. (Yovani DOLAN,[facility]) Reconcile Medications Alprazolam 1 MG TABLET 1 TAB PO TID PRN ANXIETY (Reported) Amlodipine Besylate 10 MG TABLET 1 TAB PO DAILY HTN (Reported) Aspirin (Ecotrin*) 81 MG TABLET.DR 1 TAB PO DAILY HEART/BLOOD (Reported) Fluticasone Propionate 50 MCG/ACTUATION SPRAY.SUSP 2 SPRAY NASB DAILY ALLERGIES (Reported) Gabapentin 300 MG CAPSULE 1 CAP PO TID PAIN (Reported) Ibuprofen 600 MG TABLET 1 TAB PO Q6PRN PRN pain with food Lisinopril 20 MG TABLET 1 TAB PO DAILY HEART (Reported) Metformin HCl 500 MG TABLET 1 TAB PO DAILY DIABETES (Reported) Multivitamin (Daily Multiple Vitamin) 1 EACH TABLET 1 TAB PO DAILY VITAMIN SUPPORT (Reported) Oxycodone HCl 10 MG TABLET 1 TAB PO 4 TIMES/DAY PAIN (Reported) Oxycodone HCl 10 MG TABLET 1 TAB PO DAILY PRN PAIN (Reported) Oxycodone HCl/Acetaminophen (Percocet 5-325 MG Tablet) 5 MG-325 MG TABLET 1 TAB PO BID pain (Radha DOLAN,[facility]) Past History Travel History Traveled to [place] past 21 day No Medical History Any Pertinent Medical History? 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 Yes (Ghazal Pina MD) Review of Systems Review of Systems Constitutional: Reports: no symptoms, see HPI. Eyes: Reports: no symptoms. Ears, Nose, Throat, Mouth: Reports: no symptoms, see HPI. Respiratory: Reports: see HPI. Cardiovascular: Reports: no symptoms, see HPI. Gastrointestinal/Abdominal: Reports: no symptoms, see HPI. Musculoskeletal: Reports: see HPI, muscle pain. Skin: Reports: no symptoms. (Ghazal Pina MD) Physical Exam Physical Exam General Appearance: well developed/nourished, alert, moderate distress Head: atraumatic, normal appearance Eyes: Bilateral: normal appearance, PERRL, EOMI. Ears, Nose, Throat, Mouth: hearing grossly normal Neck: normal inspection, supple Respiratory: normal breath sounds, chest non-tender, lungs clear Cardiovascular: regular rate/rhythm Gastrointestinal: normal bowel sounds, soft Core Measures CVA/TIA Diagnosis: No (Ghazal Pina MD) Progress Differential Diagnosis: chronic LBP Plan of Care: Current Medications Sig/Ernestina Start time Last Medication Dose Stop Time Status Admin Ketorolac 30 MG ONCE ONE 11/11 799 AC Tromethamine 11/10 800 (Toradol) Morphine Sulfate 4 MG ONCE ONE 11/11 0700 AC 11/10 (MORPHINE SULFATE) 11/10 800 0755 Ketorolac 30 MG ONCE ONE 11/10 0645 CAN Tromethamine 11/10 0646 (Toradol) (Ghazal Pina MD) Comments: Patient signed out to Dr. 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 (Radha DOLAN,[facility]) Departure Departure Disposition: STILL A PATIENT Condition: Stable Clinical Impression Primary Impression: Chronic low back pain Referrals: Juana Trimble APRN (PCP/Family) Departure Forms: Customer Survey General Discharge Information (Ghazal Pina MD) Departure Prescriptions: Current Visit Scripts Oxycodone HCl/Acetaminophen (Percocet 5-325 MG Tablet) 1 TAB PO BID #10 TAB PA/SEARCH ENGINEER Co-Sign Statement Statement: ED Attending supervision documentation- [] I saw and evaluated the patient. I have also reviewed all the pertinent lab results and diagnostic results. I agree with the findings and the plan of care as documented in the PA's/SEARCH ENGINEER's documentation. [] I have reviewed the ED Record and agree with the PA's/SEARCH ENGINEER's documentation. [] Additions or exceptions (if any) to the PAs/SEARCH ENGINEER's note and plan are summarized below: [] Resident Co-Sign Statement Statement: ED Attending supervision documentation- [x] I saw and evaluated the patient. I have also reviewed all the pertinent lab results and diagnostic results. I agree with the findings and the plan of care as documented in the Resident's documentation. [] I have reviewed the ED Record and agree with the Resident's documentation. [] Additions or exceptions (if any) to the Resident's note and plan are summarized below: [] (Radha DOLAN,[facility]) ED Attending Observation Initial Observation Note: I have seen and personally examined STEPHANY CUMMINS Sav GARLAND on 11/10/17 at 0755. I agree with the current emergency department documentation. The disposition (admission or discharge) is uncertain at this time, he needs a period of observation for the following reason(s): [chronic low backpain, multiple falls] The ED Nurse caring for this patient has been personally informed as to what the patient is being observed for. (Ghazal Pina MD)
[2017-11-10] MEDS ORDERED: OXYCODONE HCL10 M2 PO (08:45)
[2017-11-10 09:15] VITALS: BP 127/62
[2017-11-10] MEDS ORDERED: PERCOCET 5-3251 EACH PO (09:35)
== END 2017-11-10 09:50 ==
LOC: ERH 06:20
DX: G89.29 Other chronic pain (principal)
CPT/HCPCS: 96374; 96375; J1885; J3101; J3490

== ENCOUNTER 2017-12-30 10:26 | Emergency (ER) | payer OTHER ==
[~2017-12-30] VITALS: Ht 176.5 cm; Wt 93.0 kg
--- NOTE | 2017-12-30 11:44 | RADIOLOGY REPORT ---
EXAMINATION: XR LUMBOSACRAL SPINE CLINICAL INFORMATION: Acute lumbar back pain. COMPARISON: CT of the abdomen and pelvis 09/02/2017. TECHNIQUE: AP and lateral views of the lumbosacral spine are obtained. FINDINGS: There is no acute fracture. Mild retrolistheses of L1 on L2 and L2 on L3 and slight anterolisthesis of L4 on L5 are unchanged. There is no significant change in moderate to severe multilevel degenerative disc disease and right convex lumbar scoliosis. IMPRESSION: No significant change in moderate to severe multilevel degenerative disc disease and scoliosis.
--- NOTE | 2017-12-30 12:18 | ED NECK/BACK PAIN COMPLAINT ---
History of Present Illness General Chief Complaint: Low Back Pain/Injury Stated Complaint: BACK PAIN Source: patient Exam Limitations: no limitations Vital Signs & Intake/Output Vital Signs & Intake/Output Vital Signs Date Time Temp Pulse Resp B/P B/P Pulse O2 O2 Flow FiO2 Mean Ox Delivery Rate 12/30 1029 98.0 71 18 143/72 99 Room Air Allergies Coded Allergies: tramadol (VOMITING 12/28/17) codeine (Intermediate, STOMACH CRAMPING 09/23/16) morphine (From MS Contin) (Intermediate, PROFUSE SWEATING 09/23/16) Reconcile Medications Alprazolam 1 MG TABLET 1 TAB PO TID PRN ANXIETY (Reported) Amlodipine Besylate 10 MG TABLET 1 TAB PO DAILY HTN (Reported) Aspirin (Ecotrin*) 81 MG TABLET.DR 1 TAB PO DAILY HEART/BLOOD (Reported) Fluticasone Propionate 50 MCG/ACTUATION SPRAY.SUSP 2 SPRAY NASB DAILY ALLERGIES (Reported) Gabapentin 300 MG CAPSULE 1 CAP PO TID PAIN (Reported) Ibuprofen 600 MG TABLET 1 TAB PO Q6PRN PRN pain with food Lisinopril 20 MG TABLET 1 TAB PO DAILY HEART (Reported) Metformin HCl 500 MG TABLET 1 TAB PO DAILY DIABETES (Reported) Multivitamin (Daily Multiple Vitamin) 1 EACH TABLET 1 TAB PO DAILY VITAMIN SUPPORT (Reported) Oxycodone HCl 10 MG TABLET 1 TAB PO 4 TIMES/DAY PAIN (Reported) Oxycodone HCl 10 MG TABLET 1 TAB PO DAILY PRN PAIN (Reported) Oxycodone HCl/Acetaminophen (Percocet 5-325 MG Tablet) 5 MG-325 MG TABLET 1 TAB PO BID pain Triage Note: BIBA FROM HOME WITH C/O BACK PAIN, PT SEEN FOR THE SAME YESTERDAY. PT ASKING FOR PAIN MEDS WHILE STILL ON EMS STRETCHER. REQUESTING DR HOFF, DOES NOT WANT TO BE SEEN BY A PA. Triage Nurses Notes Reviewed? yes HPI: 67-year-old male with chronic back pain and left shoulder pain presents with worsening pain. Patient fell 2 days ago. He was evaluated in the emergency department. He was given morphine and refused imaging studies. He was discharged at that time. When patient fell, hit his left shoulder and lower back. He denies any numbness or tingling. He feels that his shoulder is normal. He complains of severe low back pain. He denies any weakness, saddle paresthesias, loss of bowel or bladder control. Patient has not taken any pain medications for 2 days. Patient now has severe pain. Patient is on chronic pain management for which he received a month prescription on December 20. Past History Travel History Traveled to [place] past 21 day No Medical History Any Pertinent Medical History? see below for history Neurological: NONE EENT: NONE Cardiovascular: hypertension Respiratory: NONE Gastrointestinal: NONE Hepatic: NONE Renal: NONE Musculoskeletal: chronic pain SEPTIC SHOULDER INFECTION SEPTIC SPINE Psychiatric: OPIOD ABUSE (HISTORY) Endocrine: diabetes Blood Disorders: NONE Cancer(s): NONE APPLICATION CONSULTANT/Reproductive: NONE History of MRSA: No History of VRE: No History of CDIFF: No Surgical History Surgical History: lumbar surgery Psychosocial History Who do you live with Patient/Self Services at Home Nursing What is your primary language Guinean Tobacco Use: Refused to answer ETOH Use: denies use Illicit Drug Use: denies illicit drug use Family History Family History, If Any: FATHER Relation not specified for: FH: lung cancer Hx Contributory? No Review of Systems Review of Systems Constitutional: Denies: no symptoms. Eyes: Denies: no symptoms. Ears, Nose, Throat, Mouth: Denies: no symptoms. Respiratory: Denies: no symptoms. Cardiovascular: Denies: no symptoms. Gastrointestinal/Abdominal: Denies: no symptoms. Musculoskeletal: Reports: back pain, joint swelling. Skin: Denies: no symptoms. Neurological/Psychological: Denies: no symptoms. All Other Systems: Reviewed and Negative Physical Exam Physical Exam General Appearance: well developed/nourished, no apparent distress, alert, awake , mild distress Head: atraumatic, normal appearance Neck: normal inspection, supple, full range of motion Respiratory: normal breath sounds, lungs clear Cardiovascular: regular rate/rhythm Back: bilateral lumbar paraspinous tenderness Extremities: non-tender Neurologic/Psych: no motor/sensory deficits, awake, alert, oriented x 3 Core Measures CVA/TIA Diagnosis: No Progress Differential Diagnosis: herniated disc, T/L spine injury, contusion, sprain, strain Plan of Care: 67-year-old male with chronic pain under pain management presents with severe pain to the lower back following a fall 2 days ago. Patient was in the emergency department for evaluation for complaints related to this situation 2 days ago. He was given morphine in the emergency department with improvement and discharged refusing imaging studies. Patient denies loss of bowel or bladder control, no saddle paresthesias to suggest acute cauda equina syndrome. There is no evidence of traumatic injury. His strength is intact. X-ray of the lumbar spine did not reveal any acute fracture or subluxation. Patient refused left shoulder x-ray. After extensive conversation with the patient, I discussed the need for him to take his medications appropriately. Patient has a month prescription for oxycodone. He is under pain management. I explained at length that patient's mental pain management is longitudinally best performed by a metal painter or his primary care provider. The emergency department is not the appropriate place for chronic pain management given inconsistency in care. Patient was offered alternative pain management but refused. I explained to the patient that he can certainly seek evaluation in the emergency department going forward for acute medical conditions. That based on evaluation, narcotic management would be decided by the evaluating physician but he may not be guaranteed narcotic pain analgesics for chronic pain related issues. Patient was clearly frustrated by this. Departure Departure Disposition: HOME OR SELF CARE Condition: Stable Clinical Impression Primary Impression: Acute exacerbation of chronic low back pain Referrals: Juana Trimble APRN (PCP/Family) Departure Forms: Customer Survey General Discharge Information
[2017-12-30] MEDS ORDERED: METFORMIN HCL850 M1 PO (12:19)
[2017-12-30] MEDS ORDERED: OMEPRAZOLE20 M2 PO (12:20)
[2017-12-30 12:37] VITALS: BP 132/74
== END 2017-12-30 12:40 ==
LOC: ERH 10:26
DX: M54.5 Low back pain (principal); G89.29 Other chronic pain; I10 Essential (primary) hypertension; E11.9 Type 2 diabetes mellitus without complications; Z79.82 Long term (current) use of aspirin; Z79.84 Long term (current) use of oral hypoglycemic drugs
CPT/HCPCS: 72100